=== PATIENT | female | born 1945 | race Caucasian/White ===

== ENCOUNTER 2024-01-31 19:06 | Inpatient (IN) | payer OTHER, SELFPAY ==
[2024-01-31 15:25] VITALS: BP 129/61
[2024-01-31 15:48] VITALS: BP 129/104; BP 167/68; PULSE 78; PULSE 90
[2024-01-31 16:31] LABS: % Basophils 0.4 % (0-2); % Eosinophils 1.4 % (0-6); % Immature Granulocytes 0.7 % (0-0.5); % Lymphocytes 15.4 % (20.5-51.1); % Monocytes 6.1 % (1.7-9.3); Absolute Basophils 0.1 10^3/uL (0-0.2); Absolute Eosinophils 0.2 10^3/uL (0-0.7); Absolute Immature Granulocytes 0.1 10^3/uL (0-0.05); Absolute Lymphocytes 2.1 10^3/uL (1.2-3.4); Absolute Monocytes 0.8 10^3/uL (0.1-0.6); Absolute Neutrophils 10.3 10^3/uL (1.4-6.5); Hematocrit 36.8 % (37.0-47.0); Hemoglobin 12.6 g/dL (12.0-16.0); Mean Corp Hgb Conc. 34.2 g/dL (33.0-37.0); Mean Corpuscular Volume 84.6 fL (81.0-99.0); Mean Platelet Volume 9.4 fL (7.4-10.4); Nucleated Red Blood Cells % 0 %; Platelet Count 251 10^3/uL (130-400); Red Blood Cell Count 4.35 10^6/uL (4.20-5.40); Red Cell Dist. Width 13.1 % (11.5-14.5); Urine Albumin Trace (Neg - Trace); Urine Bilirubin 1+ (Negative); Urine Character Clear (Clear); Urine Color Yellow; Urine Glucose Negative (Negative); Urine Ketone Negative (Negative); Urine Leukocyte 2+ (Negative); Urine Nitrite Negative (Negative); Urine Occult Blood Negative (Negative); Urine Specific Gravity 1.025 (<1.030); Urine Urobilinogen Negative (Neg - 1+); White Blood Cell Count 13.5 10^3/uL (4.8-10.8)
[2024-01-31 16:37] LABS: Urine Red Blood Cell 0-2 /HPF (0-2); Urine Squamous Cell >30 /LPF (Few)
[2024-01-31 16:38] LABS: Urine Bacteria Many (Negative)
[2024-01-31 17:09] LABS: ALT (SGPT) 31 U/L (0-35); AST (SGOT) 28 U/L (14-36); Albumin 4.2 g/dl (3.5-5.0); Alkaline Phosphatase 141 U/L (38-126); Blood Urea Nitrogen 92 mg/dl (7-17); Calcium 8.6 mg/dl (8.4-10.2); Carbon Dioxide 18 mmol/L (22-30); Chloride 98 mmol/L (98-107); Glucose 182 mg/dl (70-99); Potassium 4.4 mmol/L (3.5-5.1); Sodium 133 mmol/L (135-145); Total Bilirubin 1.2 mg/dl (0.2-1.3); Total CK 238 U/L (30-135); Total Protein 7.5 g/dl (6.3-8.2); eGFR 16.55
--- NOTE | 2024-01-31 17:27 | ED.GENMED ---
History of Present Illness
General
Chief Complaint: Fall
Source: patient
Exam Limitations: none
Time Seen by Provider: 01/31/24 15:28
Nursing documentation reviewed up to this point in time: agreed with
History of Present Illness
History of Present Illness:
86-year-old female with history of chronic low back pain, back stimulator under the care of of pain management, orthostatic hypotension, here after episode of vomiting and diarrhea 3 nights ago, general weakness today, fall in her bathroom today
with acute on chronic low back pain.
Patient states the last time she felt well was 4 days ago when she drove to a [facility] for a visit.
On her way home she stopped at a market and got some chicken salad and potato salad which she ate that evening and about 2 hours later vomited 'a lot' once then she had diarrhea x 3. She slept on the couch and the next day (2 days ago) she felt
weak and lightheaded. Yesterday she rested and took a bath and laid on the couch but could not sleep so she walked to her bedroom, slept overnight and at 10 AM today she states she got up to go to the bathroom, sat on the toilet and then fell from
the toilet to the floor where she laid for about an hour, she finally sat up and scooted on her butt backwards the bedroom and push the help button. EMS arrived and brought her here.
She states now her lower back is more sore than usual.
She denies F/C. Denies nausea at this time. She denies chest pain or trouble breathing. Denies abdominal pain.
She arrives in a weakened state and cannot stand without significant assistance at bedside.
5:45 p.m.
Family just arrived. Pt has hx NIDDM, HTN, Hypothyroid. Pt states she has not been taking her medications as she is trying to control with diet
Past History
Past History
ED Past Medical History: HTN, NIDDM, Hypothyroidism and Other (Chronic back pain under the care of pain management at [facility])
ED Past Surgical History: Orthopedic
Social History
Tobacco: Non-smoker
Living: alone ([place] [facility])
Review of Systems
Review of Systems
Allergies reviewed?: Yes
All Other Systems: ROS reviewed and negative except as documented in HPI and ROS
Constitutional: Reports fatigue; Denies fever
Respiratory: Denies trouble breathing
Cardiac: Denies chest pain, palpitations or syncope
ABD/GI: Denies abdominal pain, nausea, vomiting or diarrhea
: Denies dysuria, frequency or difficulty voiding
Musculoskeletal: Reports back pain (chronic back pain followed by pain management)
Skin: Reports no symptoms
Neurological: Reports weakness (generalized); Denies dizzy or headache
Phy Exam
Physical Exam
Physical Exam:
GENERAL: No acute distress. A&Ox3.
CONSTITUTIONAL: Afebrile.
EYES: PERRL, conjunctivae normal
Neck: Supple
ENMT: Mouth very dry, Pharynx nl
RESPIRATORY: Regular respirations, nonlabored, lungs clear.
CARDIOVASCULAR: Regular rate and rhythm, no murmurs, no rubs.
GI: Soft, nontender, normal BS
MUSCULOSKELETAL: Too weak to stand. Well perfused. No edema
SKIN: Warm, dry, pink
PSYCH: Normal mood and affect. Well kept, interactive and appropriate
NEUROLOGIC: Awake, alert and oriented. No focal neurological deficits
Course
Orders/Labs/Results
Orders:
Orders
01/31/24 Breakfast
Cholesterol Lowering
Cholesterol Lowering: Sodium, 2 Gram
01/31/24 15:29
Orthostatic VS- Treatment ONCE
01/31/24 16:05
Lumbar Spine, 2 or 3 View [CR Lumbar Spine 2 Or 3 Views] Urgent
Comment:
Reason For Exam: pain after fall
01/31/24 16:19
Complete Blood Count/With Diff Urgent
Urinalysis Reflex To Culture Urgent
Date Specimen was Collected: 01/31/24
Time Specimen was Collected: 16:19
Urine Microscopic Reflex Cult Urgent
Urine Culture Urgent
ROBINSON Source: U
Specimen Description:
Date Specimen was Collected: 01/31/24
Time Specimen was Collected: 16:19
01/31/24 16:45
CPK Isoenzyme Urgent
Comprehensive Metabolic Panel Urgent
01/31/24 17:43
0.9% Sodium Chloride 1000 ml [Nss] 1,000 ml IV BOLUS
01/31/24 18:27
Abdomen/Pelvis wo Contrast CT [CT Abd/pelvis Wo Iv Cont] Urgent
Comment: OK FOR PO CONTRAST
Reason For Exam: abdominal pain
01/31/24 18:28
Admit/Transfer Patient As Directed
Co-Sign Provider:
Level of Care: Inpatient admission
Assign to:: Telemetry
Physician / Group: aiden cyr
Diagnosis: Dehydration, acute kidney injury, fall
Reason for Telemetry: Arrhythmia
Date to Stop Telemetry: 02/03/24
Time to Stop Telemetry: 11:00
Reason for Hospitalization: Dehydration, acute kidney injury, fall
Expected length of stay greater than two midnights?: Yes
ELOS- Estimated Length of Stay in days: 3
I certify the patient meets the requirements for IP care: Yes
01/31/24 18:29
PRN Pain Medication Management As Directed
May give lesser potent ordered pain med per pt: Yes
preference::
Protocol:: Medication orders for pain may be administered in a
manner that supports deferring to patient preference
when the pt is:
- Requesting an ordered lesser potent pain medication.
Least to most potent pain medications are defined
as: acetaminophen < NSAID < tramadol < opioids
(morphine, oxycodone, hydromorphone).
- Requesting a lesser dose of the same medication IF
ORDERED.
- Requesting a less intrusive route of administration
if both routes are prescribed by the provider (PO <
IV).
01/31/24 18:30
Code Status As Directed
Resuscitation Status: Do not resuscitate
Reached after discussion with pt or family/Healthcare POA: Yes
0.9% Sodium Chloride 1000 ml [Nss] 1,000 ml IV 100 mls/hr
DNR Bracelet Application ONCE
01/31/24 18:32
EKG [Electrocardiogram (*1)] Urgent
Reason for Study: QTc Monitoring
01/31/24 18:34
Orthostatic Vital Signs As Directed
Orthostatic VS Frequency: BID
Comment: include now
Ot Eval And Treat Routine
Pt Eval And Treat Routine
Activity Level: As Tolerated
01/31/24 18:36
Bladder Scan As Directed
Follow Bladder Retention/Intermittent Cath Algorithm?: Yes
PRN if no void in __ hours: 6
Frequency: Per Retention Algorithm
If Bladder Scan Result >: 400
then:: Straight cath
Straight Cath As Directed
Frequency: Per Retention Algorithm
Additional Instructions: straight cath as needed per acute urinary retention algorithm for 24 hrs
Additional Instructions: for bladder scan greater than 400 mL
01/31/24 18:40
Dextrose 50%-Water [Dextrose 50% Syringe] 12.5 grams IV [id number] PRN
Glucagon [GlucaGen] 1 mg IM PRN PRN
Bedside Glucose Monitoring As Directed
Frequency: AC&HS
Additional Instructions:: Change to q6h if pt on TPN, tube feeding or not eating
01/31/24 20:59
Acetaminophen [Tylenol] 650 mg PO Q4HPRN PRN
HYDROmorphone [Dilaudid] 0.5 mg IV Q4HPRN PRN
01/31/24 20:59
Activity As Directed
Activity Level: As Tolerated
Intake/ Output As Directed
Frequency: Per unit guidelines
Pneumatic Compression Sleeves As Directed
Type: Knee high
Vital Signs As Directed
Frequency: Per unit guidelines
Weight As Directed
Frequency: Daily
Pulse Ox/spot Check [RESP] Routine
Quantity: 1
DX Deep Vein Thrombosis Video Routine
01/31/24 22:00
Amitriptyline [Elavil] 75 mg PO HS
Pyridoxine [Vitamin B-6] 100 mg PO HS
methocarbamol 500 mg PO HS
02/01/24 06:00
Complete Blood Count/With Diff IN AM
Comprehensive Metabolic Panel IN AM
Glycohemoglobin (HgbA1c) IN AM
TSH Reflex To Free T4 IN AM
Total CK [Creatine Phosphokinase] IN AM
Levothyroxine [Synthroid] 75 mcg PO DAILY @ 0600
02/01/24 07:30
Insulin Aspart Corrective Low [Novolog Flexpen-Low Resistance] See Protocol SC AC
02/01/24 08:00
Amlodipine [Norvasc] 2.5 mg PO DAILY
Solifenacin Succinate [Vesicare] 10 mg PO DAILY
02/02/24 06:00
Complete Blood Count/With Diff IN AM
Comprehensive Metabolic Panel IN AM
02/03/24 06:00
Complete Blood Count/With Diff IN AM
Comprehensive Metabolic Panel IN AM
02/03/24 11:00
DC Protocol for Telemetry ONCE
02/04/24 06:00
Complete Blood Count/With Diff IN AM
Comprehensive Metabolic Panel IN AM
02/05/24 06:00
Complete Blood Count/With Diff IN AM
Comprehensive Metabolic Panel IN AM
02/06/24 06:00
Complete Blood Count/With Diff IN AM
Comprehensive Metabolic Panel IN AM
Abnormal Lab Results
01/31/24 01/31/24
16:19 16:45
WBC 13.5 H 10^3/uL
(4.8-10.8)
Hct 36.8 L %
(37.0-47.0)
Abs Immat Gran (auto) 0.1 H 10^3/uL
(0-0.05)
Absolute Neuts (auto) 10.3 H 10^3/uL
(1.4-6.5)
Absolute Monos (auto) 0.8 H 10^3/uL
(0.1-0.6)
Immature Gran % 0.7 H %
(0-0.5)
Neutrophils % 76.0 H %
(42.2-75.2)
Lymphocytes % 15.4 L %
(20.5-51.1)
Sodium 133 L mmol/L
(135-145)
Carbon Dioxide 18 L mmol/L
(22-30)
BUN 92 H mg/dl
(7-17)
Creatinine 2.8 H mg/dL
(0.6-1.0)
Glucose 182 H mg/dl
(70-99)
Alkaline Phosphatase 141 H U/L
(38-126)
Total Creatine Kinase 238 H U/L
(30-135)
Urine Bilirubin 1+ A
(Negative)
Leukocyte Esterase Rfl 2+ A
(Negative)
Urine WBC (Reflex) 11-15 A /HPF
(0-5)
Urine Bacteria (Reflex) Many A
(Negative)
01/31/24 16:19
01/31/24 16:45
Vital Signs
Initial and Last Documented VS:
Initial Vital Signs
Temp Pulse Resp BP Pulse Ox
98.1 F 80 22 129/61 93
01/31/24 15:25 01/31/24 15:25 01/31/24 15:25 01/31/24 15:25 01/31/24 15:25
Last Documented Vital Signs
Temp Pulse Resp BP Pulse Ox
98.0 F 87 18 158/62 100
01/31/24 20:40 01/31/24 20:40 01/31/24 20:40 01/31/24 20:40 01/31/24 20:40
MDM/Problems Addressed
MDM/Problems Addressed:
86-year-old female with history of chronic low back pain, back stimulator under the care of of pain management, orthostatic hypotension, here after episode of vomiting and diarrhea 3 nights ago, general weakness today, fall in her bathroom today
with acute on chronic low back pain.
Patient states the last time she felt well was 4 days ago when she drove to a [facility] for a visit.
On her way home she stopped at a market and got some chicken salad and potato salad which she ate that evening and about 2 hours later vomited 'a lot' once then she had diarrhea x 3. She slept on the couch and the next day (2 days ago) she felt
weak and lightheaded. Yesterday she rested and took a bath and laid on the couch but could not sleep so she walked to her bedroom, slept overnight and at 10 AM today she states she got up to go to the bathroom, sat on the toilet and then fell from
the toilet to the floor where she laid for about an hour, she finally sat up and scooted on her butt backwards the bedroom and push the help button. EMS arrived and brought her here.
She states now her lower back is more sore than usual.
She denies F/C. Denies nausea at this time. She denies chest pain or trouble breathing. Denies abdominal pain.
She arrives in a weakened state and cannot stand without significant assistance at bedside.
5:30 p.m.
CBC WBC 13.5
CMP:92/2.8 (nothing to compare). No documented significant past medical history. Glucose 182
CPK: 238
Gap 17
IL NSS ordered
U/A: Negative nitrites +1 bilirubin 2+ leukocytes, WBC sees 11-15, greater than 30 squames, many bacteria, culture
6:00 p.m.
LS spine radiology report read: IMPRESSION:
Moderate multilevel degenerative changes of the lumbar spine without evidence for acute fracture.
Plan: Admit: Acute Dehydration, NIDDM, acute renal insufficiency, generalized weakness
Hospitalist notified of admission
*Critical Care Note
Total Time (30-74mins, 75-104mins- exclusive of procedures): Not Applicable
ED Attending Note
-
Portions of this chart may have been created with voice recognition software.� Occasional wrong word or��sound alike� substitutions may have occurred due to the inherent limitations of voice recognition software.
Discharge Plan
Departure
Patient Disposition: Admit
Date of Disposition: 01/31/24
Time of Disposition: 17:59
Admit to: Med/Surg
Presentation/result/management discussed w/ accepting MD/DO: Hospitalist
Condition: Fair
Discharge Problem:
Acute dehydration, Generalized weakness, Acute kidney insufficiency, Fall
Interventions
Interventions:
*Risk Screen - Suicide Last Done: 01/31/24 15:31
*General Assessment Last Done: 01/31/24 15:31
*Neglect/Abuse Screening Last Done: 01/31/24 15:31
ED- Fall Risk Assessment Last Done: 01/31/24 19:52
*ED COVID-19 Vaccine History Last Done: 01/31/24 15:31
*Nursing Disposition Last Done: 01/31/24 20:44
ED-Musculoskeletal Assessment Last Done: 01/31/24 15:48
ED- Neurological Assessment Last Done: 01/31/24 15:48
ED-Skin Assessment Last Done: 01/31/24 15:48
Discharge Date and Time
Discharge Date/Time: 01/31/24 20:45
[2024-01-31] MEDS: NSS 1000 IV ×2 (17:44→19:46)
[2024-01-31 18:03] LABS: CKMB 2.4 ng/ml (0.0-2.4)
--- NOTE | 2024-01-31 18:32 | HPS.HSE ---
Family Physician
-
Family Physician: Brianna Kong MD
Chief Complaint
-
Fall
History of Present Illness
78-year-old female with past medical history of uye-orvjqsg-orvcznwbj diabetes mellitus, hypertension, hypothyroidism, chronic back pain status post spinal stimulator, IBS came to the hospital after a fall. Per patient and family at bedside patient
started having vomiting and diarrhea 3 days ago after eating outside food. Her vomiting and diarrhea now slowly better however later she had a fall at home. She denies any chest pain, shortness of breath. Did have some lightheadedness and
weakness.. Denies any sick contacts. Denies any fever/chills.
Medical History
Past Medical History
Past Medical History: Reports Other
Additional Past Medical History:
HTN, NIDDM, Hypothyroidism, chronic back pain
Past Surgical History: Reports Orthopedic and Other (Spinal stimulator)
Social History
Tobacco: Non-smoker
Family History
Family History: Not pertinent
Allergies / Home Medications
Allergies reflects when Allergies were last updated in [facility].
Home Medications with original date entered in [facility]
Allergy/Medication List:
Allergies
Allergy/AdvReac Type Severity Reaction Status Date / Time
No Allergy Information Allergy Unverified 01/31/24 15:29
Available
Home Medications
amitriptyline 75 mg tablet 75 mg PO HS 01/31/24
amlodipine 2.5 mg tablet 2.5 mg PO DAILY 01/31/24
levothyroxine 75 mcg tablet 75 mcg PO DAILY 01/31/24
lisinopril 5 mg tablet 2.5 mg PO HS 01/31/24
magnesium oxide 400 mg PO HS 01/31/24
methocarbamol 500 mg tablet 500 mg PO HS 01/31/24
pyridoxine (vitamin B6) 100 mg tablet (Vitamin B-6) 100 mg PO HS 01/31/24
solifenacin 10 mg tablet 10 mg PO DAILY 01/31/24
Review of Systems
-
History Source: Patient and Family
A 12 point ROS was completed and negative except as noted: Yes
Abdomen/GI: Reports Abdominal Pain
Physical Exam
Vital Signs
Vital Signs
Temp Pulse Resp BP Pulse Ox
98.1 F 80 20 129/61 93
01/31/24 15:25 01/31/24 15:25 01/31/24 16:08 01/31/24 15:25 01/31/24 15:25
Physical Exam
General: Well Nourished and No Apparent Distress
HEENT: Anicteric and Moist mucous membranes
Respiratory: Clear and Non Labored Respirations; No Wheezes
Cardiac: S1/S2 and Regular Rhythm
Breast: Deferred by me
GI: Soft, Non Tender and Non Distended
Genito-urinary: Deferred by me
Musculoskeletal: No Edema
Neuro: Awake, Alert, Oriented and AO x 3
Psych: Calm and Intact Judgment/Insight
Laboratory Results
-
01/31/24 16:19
01/31/24 16:45
Laboratory Results
Total Bilirubin 1.2 mg/dl (0.2-1.3) 01/31/24 16:45
AST 28 U/L (14-36) 01/31/24 16:45
ALT 31 U/L (0-35) 01/31/24 16:45
Alkaline Phosphatase 141 U/L (38-126) H 01/31/24 16:45
Data Reviewed
-
Lab Data: Labs Reviewed by me, Discussed with Patient and Discussed with Family
Impression/Plan
-
Weakness and lightheadedness likely secondary to acute dehydration from ongoing nausea vomiting and diarrhea
mechanical fall 2/2 weakness; denies loss of consciousness
No nausea vomiting and diarrhea appears to be improving
Mild abdominal pain on exam, check CT abdomen/pelvis with p.o. contrast
IVF
pt/ot
Mild rhabdomyolysis secondary to fall
Monitor CK
Fluids
Mild hyponatremia
monitor
acute renal insufficiency
Unknown baseline creatinine however patient reports no history of chronic kidney disease
Bladder scan
Monitor creatinine with fluids
Ua collected in ED has lots of sq cells; repeat Ua
Chronic back pain status post spinal stimulator
Follows up with pain management at [facility]
Continue to monitor
On amitriptyline
History of ljn-mblxwei-ydfnaljzf responses
Currently being controlled with diet and exercise, per family last A1c 6
check A1c; ISS,accuchecks
History of hypertension
Continue amlodipine, hold lisinopril
DVT prophylaxis
SCDs
CODE STATUS
DNR, confirmed with patient and family at bedside
I spent a total of 77 minutes with the patient or on the floor. More than 50% of this time involved counseling and coordination of care.
[2024-01-31 20:36] VITALS: BP 152/64
[2024-01-31 20:40] VITALS: BP 158/62; BMI 30.9
[2024-01-31 21:26] LABS: Glucose - Point of Care 130 mg/dl (70-99)
[2024-01-31] MEDS: VITAMIN B-6 100 MG PO (22:00)
[2024-01-31] MEDS: ELAVIL 75 MG PO (22:00)
[2024-01-31 23:40] VITALS: BP 117/47
[2024-02-01] VITALS (9 sets, daily range): BP systolic 92–168; BP diastolic 43–86; PULSE 88–102; BMI 30.9
[2024-02-01 05:56] LABS: % Basophils 0.5 % (0-2); % Immature Granulocytes 0.5 % (0-0.5); % Lymphocytes 22.1 % (20.5-51.1); % Monocytes 7.4 % (1.7-9.3); % Neutrophils 66.5 % (42.2-75.2); Absolute Eosinophils 0.2 10^3/uL (0-0.7); Absolute Lymphocytes 1.7 10^3/uL (1.2-3.4); Absolute Monocytes 0.6 10^3/uL (0.1-0.6); Hematocrit 35.2 % (37.0-47.0); Hemoglobin 11.8 g/dL (12.0-16.0); Mean Corp Hgb Conc. 33.5 g/dL (33.0-37.0); Mean Corpuscular Hgb 29.6 pg (27.0-31.0); Mean Corpuscular Volume 88.4 fL (81.0-99.0); Mean Platelet Volume 9.4 fL (7.4-10.4); Nucleated Red Blood Cells % 0 %; Platelet Count 212 10^3/uL (130-400); Red Blood Cell Count 3.98 10^6/uL (4.20-5.40); White Blood Cell Count 7.6 10^3/uL (4.8-10.8)
[2024-02-01] MEDS: SYNTHROID 75 MCG PO (06:04)
[2024-02-01 06:34] LABS: ALT (SGPT) 26 U/L (0-35); AST (SGOT) 22 U/L (14-36); Albumin 3.4 g/dl (3.5-5.0); Alkaline Phosphatase 120 U/L (38-126); Blood Urea Nitrogen 65 mg/dl (7-17); Calcium 8.1 mg/dl (8.4-10.2); Carbon Dioxide 20 mmol/L (22-30); Chloride 107 mmol/L (98-107); Creatine Phosphokinase 150 U/L (30-135); Estimated Creatinine Clearance 24 ml/min; Glucose 164 mg/dl (70-99); Potassium 4.2 mmol/L (3.5-5.1); Sodium 140 mmol/L (135-145); Total Bilirubin 0.8 mg/dl (0.2-1.3); Total Protein 6.4 g/dl (6.3-8.2); eGFR 30.13
--- NOTE | 2024-02-01 06:38 | PTCARENOTE ---
Patient arrived on unit via stretcher from ED @2044, pulled over to bed with assist x3. Patient AAOx3, skin assessment completed, oriented to unit, call parra within reach.
[2024-02-01 06:52] LABS: TSH Reflex To Free T4 2.11 uIU/ml (0.47-4.68)
[2024-02-01 07:21] LABS: Glucose - Point of Care 155 mg/dl (70-99)
[2024-02-01] MEDS: NSS 1000 IV ×2 (07:25→21:20)
[2024-02-01] MEDS: DILAUDID 0.5 MG IV ×2 (07:26→21:23)
[2024-02-01] MEDS: VESICARE 10 MG PO (07:26)
[2024-02-01] MEDS: NORVASC 2.5 MG PO (07:26)
[2024-02-01] MEDS: OMNIPAQUE 50 ML PO (08:14)
[2024-02-01] MEDS: NOVOLOG FLEXPEN-LOW RESISTANCE 1 UNITS SC (08:15)
[2024-02-01 08:55] LABS: Glycohemoglobin (HgbA1c) 6.8 % (4.0-5.6)
[2024-02-01] MEDS: TYLENOL 650 MG PO ×2 (10:39→16:51)
[2024-02-01 11:50] LABS: Glucose - Point of Care 237 mg/dl (70-99)
--- NOTE | 2024-02-01 11:56 | W.PN.HOSP.TC ---
Today's Communication/Plan
-
Monitor vital signs
see plan
N.p.o. for now, abdominal x-ray in a.m.
Continue with fluids
Check lactate
Assessment / Plan
Assessment / Plan
General: Well Nourished and No Apparent Distress
HEENT: Anicteric and Moist mucous membranes
Respiratory: Clear and Non Labored Respirations; No Wheezes
Cardiac: S1/S2 and Regular Rhythm
GI: Soft, Non Tender and Non Distended
Musculoskeletal: No Edema
Neuro: Awake, Alert, Oriented and AO x 3
Psych: Calm and Intact Judgment/Insight
Weakness and lightheadedness likely secondary to acute dehydration from ongoing nausea vomiting and diarrhea
mechanical fall 2/2 weakness; denies loss of consciousness
No nausea vomiting and diarrhea appears to be improving
IVF
pt/ot
mild partial SBO on CT
N.p.o. for now, okay for sips of clears, p.o. meds. Abdominal x-ray tomorrow
Suspected ischemic colitis
Check lactate, appears pain is improving
Continue to monitor; diarrhea resolved
Mild rhabdomyolysis secondary to fall
Monitor CK
Fluids
Mild hyponatremia
monitor
acute renal insufficiency
Unknown baseline creatinine however patient reports no history of chronic kidney disease
Bladder scan
Monitor creatinine with fluids
Ua collected in ED has lots of sq cells; repeat Ua
Chronic back pain status post spinal stimulator
Follows up with pain management at [facility]
Continue to monitor
On amitriptyline
History of kgc-kjmzqgg-mxosyxpux responses
Currently being controlled with diet and exercise, per family last A1c 6
A1c 6.8; ISS,accuchecks
History of hypertension
Continue amlodipine, hold lisinopril
DVT prophylaxis
SCDs
CODE STATUS
DNR, confirmed with patient and family at bedside
I spent a total of 52 minutes with the patient or on the floor. More than 50% of this time involved counseling and coordination of care.
Anticipated Discharge: > 48 hours
Subjective/Interval History
-
Date of Service: February 01, 2024
denies nausea
Objective Data
-
Labs:
Laboratory Results
02/01/24
05:28
WBC 7.6
Hgb 11.8 L
Hct 35.2 L
Plt Count 212
Sodium 140
Potassium 4.2
Chloride 107
Carbon Dioxide 20 L
BUN 65 H
Creatinine 1.7 H
Glucose 164 H
Calcium 8.1 L
Total Bilirubin 0.8
AST 22
ALT 26
Alkaline Phosphatase 120
Vital Signs:
Vital Signs
Temp Pulse Resp BP Pulse Ox
98.3 F 95 16 156/86 97
02/01/24 11:10 02/01/24 11:10 02/01/24 11:10 02/01/24 11:10 02/01/24 11:10
I&O
01/31/24 02/01/24 02/02/24
06:59 06:59 06:59
Intake Total 1348 / 1348
Output Total 400 / 400
Balance 948 / 948
[2024-02-01] MEDS: NOVOLOG FLEXPEN-LOW RESISTANCE 2 UNITS SC (12:51)
--- NOTE | 2024-02-01 16:00 | CM ---
Alert awake oriented patient who lives in [place] by herself. She is independent in activates of daily living.She uses a walker and cane prn.
Had [facility] in past . SNF hx
Pharmacy [facility]
PCP Dr Brianna Kong
PLAN Home VS SNF Will need PT OT for dc planning.
[2024-02-01 16:51] LABS: Glucose - Point of Care 115 mg/dl (70-99)
[2024-02-01] MEDS: NOVOLOG FLEXPEN-LOW RESISTANCE SC (17:28)
[2024-02-01 21:12] LABS: Glucose - Point of Care 127 mg/dl (70-99)
[2024-02-01] MEDS: FLEXERIL 5 MG PO (21:15)
[2024-02-01] MEDS: VITAMIN B-6 100 MG PO (21:23)
[2024-02-01] MEDS: ELAVIL 75 MG PO (21:23)
[2024-02-02] VITALS (7 sets, daily range): BP systolic 126–186; BP diastolic 51–104; PULSE 81; O2SAT 99; BMI 31.4
[2024-02-02 03:47] LABS: Urine Albumin Negative (Neg - Trace); Urine Bilirubin Negative (Negative); Urine Character Clear (Clear); Urine Color Yellow; Urine Glucose Negative (Negative); Urine Ketone Negative (Negative); Urine Leukocyte Trace (Negative); Urine Nitrite Negative (Negative); Urine Occult Blood Negative (Negative); Urine Specific Gravity 1.015 (<1.030); Urine Urobilinogen Negative (Neg - 1+)
[2024-02-02 05:30] LABS: Urine Bacteria Many (Negative); Urine Mucus Moderate
[2024-02-02 05:38] LABS: Urine Squamous Cell >30 /LPF (Few)
[2024-02-02 05:41] LABS: Urine Red Blood Cell 0-2 /HPF (0-2)
[2024-02-02] MEDS: SYNTHROID 75 MCG PO (06:06)
[2024-02-02 07:28] LABS: % Basophils 0.8 % (0-2); % Eosinophils 5.3 % (0-6); % Immature Granulocytes 0.8 % (0-0.5); % Lymphocytes 31.6 % (20.5-51.1); % Monocytes 8.5 % (1.7-9.3); Absolute Basophils 0.1 10^3/uL (0-0.2); Absolute Eosinophils 0.4 10^3/uL (0-0.7); Absolute Immature Granulocytes 0.1 10^3/uL (0-0.05); Absolute Lymphocytes 2.3 10^3/uL (1.2-3.4); Absolute Monocytes 0.6 10^3/uL (0.1-0.6); Absolute Neutrophils 3.8 10^3/uL (1.4-6.5); Hematocrit 32.3 % (37.0-47.0); Hemoglobin 10.9 g/dL (12.0-16.0); Mean Corp Hgb Conc. 33.7 g/dL (33.0-37.0); Mean Corpuscular Hgb 29.1 pg (27.0-31.0); Mean Corpuscular Volume 86.1 fL (81.0-99.0); Mean Platelet Volume 8.9 fL (7.4-10.4); Nucleated Red Blood Cells % 0 %; Platelet Count 213 10^3/uL (130-400); Red Blood Cell Count 3.75 10^6/uL (4.20-5.40); Red Cell Dist. Width 13.1 % (11.5-14.5); White Blood Cell Count 7.2 10^3/uL (4.8-10.8)
[2024-02-02 07:36] LABS: Glucose - Point of Care 109 mg/dl (70-99)
[2024-02-02 08:11] LABS: ALT (SGPT) 24 U/L (0-35); AST (SGOT) 23 U/L (14-36); Alkaline Phosphatase 113 U/L (38-126); Blood Urea Nitrogen 32 mg/dl (7-17); Calcium 8.1 mg/dl (8.4-10.2); Carbon Dioxide 18 mmol/L (22-30); Chloride 110 mmol/L (98-107); Estimated Creatinine Clearance 35 ml/min; Glucose 105 mg/dl (70-99); Potassium 4.3 mmol/L (3.5-5.1); Sodium 140 mmol/L (135-145); Total Bilirubin 0.6 mg/dl (0.2-1.3); Total Protein 5.9 g/dl (6.3-8.2); eGFR 45.76
[2024-02-02] MEDS: NSS 1000 IV (09:12)
[2024-02-02] MEDS: NOVOLOG FLEXPEN-LOW RESISTANCE SC ×2 (09:13→16:26)
[2024-02-02] MEDS: VESICARE 5 MG PO (09:15)
[2024-02-02] MEDS: NORVASC 2.5 MG PO (09:15)
[2024-02-02] MEDS: NSS IV (09:17)
[2024-02-02] MEDS: DILAUDID 0.5 MG IV ×2 (09:35→21:43)
[2024-02-02 12:11] LABS: Glucose - Point of Care 150 mg/dl (70-99)
--- NOTE | 2024-02-02 12:18 | W.PN.HOSP.TC ---
Today's Communication/Plan
-
Monitor vital signs see plan
PT/OT recommending SNF
Continue to monitor creatinine, now improving
Start diet
Assessment / Plan
Assessment / Plan
General: Well Nourished and No Apparent Distress
HEENT: Anicteric and Moist mucous membranes
Respiratory: Clear and Non Labored Respirations; No Wheezes
Cardiac: S1/S2 and Regular Rhythm
GI: Soft, Non Tender and Non Distended
Musculoskeletal: No Edema
Neuro: Awake, Alert, Oriented and AO x 3
Psych: Calm and Intact Judgment/Insight
Weakness and lightheadedness likely secondary to acute dehydration from ongoing nausea vomiting and diarrhea
mechanical fall 2/2 weakness; denies loss of consciousness
IVF
pt/ot
mild partial SBO on CT
Abdominal x-ray 02/01 with contrast in colon, start diet
Suspected ischemic colitis
lactate normal, appears pain is improving
Continue to monitor; diarrhea resolved
cdiff neg,no WBC in stool
Mild rhabdomyolysis secondary to fall
Monitor CK
Fluids
Mild hyponatremia
monitor
acute kidney injury
Creatinine on admission 2.8, creatinine now 1.2
Unknown baseline creatinine however patient reports no history of chronic kidney disease
Bladder scan
Monitor creatinine with fluids
Ua collected in ED has lots of sq cells; denies any UTI symptoms
Chronic back pain status post spinal stimulator
Follows up with pain management at [facility]
Continue to monitor
On amitriptyline
History of vye-upbjyrg-arrjioigo responses
Currently being controlled with diet and exercise, per family last A1c 6
A1c 6.8; ISS,accuchecks
History of hypertension
Continue amlodipine, hold lisinopril
DVT prophylaxis
SCDs
CODE STATUS
DNR, confirmed with patient and family at bedside
I spent a total of 51 minutes with the patient or on the floor. More than 50% of this time involved counseling and coordination of care.
Anticipated Discharge: Within 24 hours
Subjective/Interval History
-
Date of Service: February 02, 2024
Denies pain
Objective Data
-
Labs:
Laboratory Results
02/02/24
07:01
WBC 7.2
Hgb 10.9 L
Hct 32.3 L
Plt Count 213
Sodium 140
Potassium 4.3
Chloride 110 H
Carbon Dioxide 18 L
BUN 32 H
Creatinine 1.2 H
Glucose 105 H
Calcium 8.1 L
Total Bilirubin 0.6
AST 23
ALT 24
Alkaline Phosphatase 113
Vital Signs:
Vital Signs
Temp Pulse Resp BP Pulse Ox
98.6 F 88 17 145/55 92
02/02/24 11:33 02/02/24 11:33 02/02/24 11:33 02/02/24 11:33 02/02/24 11:33
I&O
02/01/24 02/02/24 02/03/24
06:59 06:59 06:59
Intake Total 2047
Output Total 400 / 400
Balance 1648 / 1648
[2024-02-02] MEDS: NOVOLOG FLEXPEN-LOW RESISTANCE 1 UNITS SC (13:19)
--- NOTE | 2024-02-02 15:17 | PN.CDI ---
CDI
- -
CDI:
Physician Documentation Request
Admit Date: 01/31/24 19:06
Dear Doctor Shay,
Clinical Indicators:
Patient admitted with suspected ischemic colitis and MECCA.
01/30 ED Report, '...at 10 AM today she states she got up to go to the bathroom, sat on the toilet and then fell from the toilet to the floor where she laid for about an hour, she finally sat up and scooted on her butt backwards the bedroom...'
02/01 PN, 'Mild rhabdomyolysis secondary to fall'
Please clarify the type of rhabdomyolysis:
Non traumatic rhabdomyolysis
Traumatic rhabdomyolysis
Other,please specify
Use of terms such as suspected, likely, concern for, or probable (associated with a specific diagnosis that is being evaluated, monitored, or treated as if it exists) are acceptable and can be coded in the inpatient setting, when documented at the
time of discharge.
Thank you,
Maria Guadalupe Acosta RN BSN
CDI Specialist
available via tiger text
Please use your independent medical judgment in providing your response.
--- NOTE | 2024-02-02 15:23 | PN.CDI ---
CDI
- -
CDI:
Physician Documentation Request
Admit Date: 01/31/24 19:06
Dear Doctor Shay,
Clinical Indicators:
Patient presented with vomiting, diarrhea x 3 days.
H & P, 'Mild abdominal pain on exam'
01/31 PN, 'mild partial SBO on CT...Suspected ischemic colitis'
Please clarify which of the following accurately represents the acuity of the ischemic colitis. Possible options might include:
Acute
Subacute
Chronic
Other
Use of terms such as suspected, likely, concern for, or probable (associated with a specific diagnosis that is being evaluated, monitored, or treated as if it exists) are acceptable and can be coded in the inpatient setting, when documented at the
time of discharge.
Thank you,
Maria Guadalupe Acosta RN BSN
CDI Specialist
available via tiger text
Please use your independent medical judgment in providing your response.
[2024-02-02 16:24] LABS: Glucose - Point of Care 126 mg/dl (70-99)
[2024-02-02] MEDS: TYLENOL 650 MG PO (16:27)
--- NOTE | 2024-02-02 16:45 | CM ---
Reviewed chart, met with patient to discuss SNF placement. Patient stated that she would go to [facility]. Will send referrals in the am.
Plan: Case management will continue to follow and assist with discharge planning. SNF.
--- NOTE | 2024-02-02 18:10 | PTCARENOTE ---
pt's roommates visitor yelled out of pt room that something was wrong with pt. this nurse and tech Osiris walked into room and found pt laying flat on back towards the bottom of the bed, head of bed was elevated but pt was not laying against elevated
surface, food tray was on side table and dinner plate was on top of pt abdomen, pt was coughing up food chunks. This nurse and tech sat pt up, pt airway was not obstructed. pt continued to cough and cough up small bites of food. pt stated 'I was
eating and then I just couldn't swallow.' Pt was assisted OOB and sat in the chair for 15 minutes. pulse ox 95% on RA, lingering cough. bed linens changed. this nurse notified Dr. Day via tt, CXR ordered. Dr. Day requested that covering FURNITURE UPHOLSTERER be
notified when CXR is resulted. This nurse will notify shift coordinator nurseSelwyn.
[2024-02-02] MEDS: FLEXERIL 5 MG PO (21:23)
[2024-02-02] MEDS: VITAMIN B-6 100 MG PO (21:24)
[2024-02-02] MEDS: ELAVIL 75 MG PO (21:24)
[2024-02-02 21:54] LABS: Glucose - Point of Care 99 mg/dl (70-99)
[2024-02-03] VITALS (8 sets, daily range): BP systolic 106–176; BP diastolic 50–81; PULSE 77–92; O2SAT 97; BMI 31.6
[2024-02-03] MEDS: SYNTHROID 75 MCG PO (06:13)
[2024-02-03 07:11] LABS: % Basophils 0.6 % (0-2); % Eosinophils 6.9 % (0-6); % Immature Granulocytes 1.2 % (0-0.5); % Lymphocytes 38.3 % (20.5-51.1); % Monocytes 7.8 % (1.7-9.3); % Neutrophils 45.2 % (42.2-75.2); Absolute Eosinophils 0.5 10^3/uL (0-0.7); Absolute Immature Granulocytes 0.1 10^3/uL (0-0.05); Absolute Lymphocytes 2.5 10^3/uL (1.2-3.4); Absolute Monocytes 0.5 10^3/uL (0.1-0.6); Absolute Neutrophils 2.9 10^3/uL (1.4-6.5); Hematocrit 34.1 % (37.0-47.0); Hemoglobin 11.2 g/dL (12.0-16.0); Mean Corp Hgb Conc. 32.8 g/dL (33.0-37.0); Mean Corpuscular Hgb 30.1 pg (27.0-31.0); Mean Corpuscular Volume 91.7 fL (81.0-99.0); Mean Platelet Volume 8.9 fL (7.4-10.4); Nucleated Red Blood Cells % 0 %; Platelet Count 189 10^3/uL (130-400); Red Blood Cell Count 3.72 10^6/uL (4.20-5.40); Red Cell Dist. Width 12.7 % (11.5-14.5); White Blood Cell Count 6.5 10^3/uL (4.8-10.8)
[2024-02-03 07:32] LABS: ALT (SGPT) 23 U/L (0-35); AST (SGOT) 23 U/L (14-36); Alkaline Phosphatase 99 U/L (38-126); Blood Urea Nitrogen 21 mg/dl (7-17); Calcium 8.5 mg/dl (8.4-10.2); Carbon Dioxide 23 mmol/L (22-30); Chloride 109 mmol/L (98-107); Estimated Creatinine Clearance 38 ml/min; Glucose 93 mg/dl (70-99); Potassium 4.8 mmol/L (3.5-5.1); Sodium 142 mmol/L (135-145); Total Bilirubin 0.4 mg/dl (0.2-1.3); Total Protein 5.9 g/dl (6.3-8.2)
[2024-02-03 07:43] LABS: Glucose - Point of Care 106 mg/dl (70-99)
[2024-02-03] MEDS: NORVASC 2.5 MG PO (07:58)
[2024-02-03] MEDS: NOVOLOG FLEXPEN-LOW RESISTANCE SC ×3 (07:58→17:53)
[2024-02-03] MEDS: VESICARE 5 MG PO (07:58)
[2024-02-03] MEDS: TYLENOL 650 MG PO (08:01)
[2024-02-03 11:46] LABS: Glucose - Point of Care 146 mg/dl (70-99)
--- NOTE | 2024-02-03 12:56 | W.PN.HOSP.TC ---
Today's Communication/Plan
-
Monitor vital signs see plan
Speech to evaluate
Monitor renal function
PT/OT
Discharge planning
Assessment / Plan
Assessment / Plan
General: Well Nourished and No Apparent Distress
HEENT: Anicteric and Moist mucous membranes
Respiratory: Clear and Non Labored Respirations; No Wheezes
Cardiac: S1/S2 and Regular Rhythm
GI: Soft, Non Tender and Non Distended
Musculoskeletal: No Edema
Neuro: Awake, Alert, Oriented and AO x 3
Psych: Calm and Intact Judgment/Insight
Weakness and lightheadedness likely secondary to acute dehydration from ongoing nausea vomiting and diarrhea
mechanical fall 2/2 weakness; denies loss of consciousness
IVF
pt/ot
mild partial SBO on CT
resolved
Abdominal x-ray 02/01 with contrast in colon, started diet
suspected dislodgment, choking 02/01
X-ray without any impaction
Currently without any symptoms, speech to evaluate
Suspected ischemic colitis, unknown acuity
lactate normal, appears pain is improving
Continue to monitor; diarrhea resolved
cdiff neg,no WBC in stool
Mild traumatic rhabdomyolysis secondary to fall
Monitor CK
Fluids
Mild hyponatremia
monitor
acute kidney injury
Creatinine on admission 2.8, creatinine now 1.1
Unknown baseline creatinine however patient reports no history of chronic kidney disease
Bladder scan
Monitor creatinine with fluids
Ua collected in ED has lots of sq cells; denies any UTI symptoms
Chronic back pain status post spinal stimulator
Follows up with pain management at [facility]
Continue to monitor
On amitriptyline
History of egg-ztvofyf-vvkfvuohc responses
Currently being controlled with diet and exercise, per family last A1c 6
A1c 6.8; ISS,accuchecks
History of hypertension
Continue amlodipine, hold lisinopril
DVT prophylaxis
SCDs
CODE STATUS
DNR, confirmed with patient and family at bedside
I spent a total of 52 minutes with the patient or on the floor. More than 50% of this time involved counseling and coordination of care.
Anticipated Discharge: Within 24 hours
Subjective/Interval History
-
Date of Service: February 03, 2024
denies pain
Objective Data
-
Labs:
Laboratory Results
02/03/24
06:25
WBC 6.5
Hgb 11.2 L
Hct 34.1 L
Plt Count 189
Sodium 142
Potassium 4.8
Chloride 109 H
Carbon Dioxide 23
BUN 21 H
Creatinine 1.1 H
Glucose 93
Calcium 8.5
Total Bilirubin 0.4
AST 23
ALT 23
Alkaline Phosphatase 99
Vital Signs:
Vital Signs
Temp Pulse Resp BP Pulse Ox
98.7 F 84 17 126/65 97
02/03/24 11:40 02/03/24 11:40 02/03/24 11:40 02/03/24 11:40 02/03/24 11:40
I&O
02/02/24 02/03/24 02/04/24
06:59 06:59 06:59
Intake Total 2047 360 / 360
Output Total 400 / 400
Balance 1648 / 1648 360 / 360
--- NOTE | 2024-02-03 14:40 | PTOTSP ---
SPEECH THERAPY SWALLOW EVALUATION:
Patient exhibits clinical signs of oropharyngeal dysphagia, likely chronic related to weakness/deconditioning with possible component unknown etiology. Pt remains at risk for aspiration and related complications given history of choking episodes.
Recommend IDDSI Level 6 Soft and Bite Size diet, thin liquids. Medications whole with liquid as best tolerated. Aspiration precautions: Upright positioning; Small single sips/bites; Slow rate of intake; Partial supervision with meals; Alternate
textures; Reduced distractions during meals; Remain upright 30 minutes after eating/drinking; Extra sauces/gravies as needed; Oral care 3x/day; Monitor for signs of aspiration; D/c oral diet if any decline in mental or respiratory status. Recommend
Videofluoroscopic Swallowing Study to further assess swallow physiology. Given chronicity of dysphagia, pt appears safe to continue oral diet until VSE. Discussed with Dr. Day; Given that pt is to d/c tomorrow (Tuesday) would recommend VSE as an
Outpatient. ST to follow.
RECOMMEND:
1) IDDSI Level 6 Soft and Bite Size diet, thin liquids
2) Medications whole with liquid as best tolerated
3) Aspiration precautions: Upright positioning; Small single sips/bites; Slow rate of intake; Partial supervision with meals; Alternate textures; Reduced distractions during meals; Remain upright 30 minutes after eating/drinking; Extra
sauces/gravies as needed; Oral care 3x/day; Monitor for signs of aspiration; D/c oral diet if any decline in mental or respiratory status
4) Videofluoroscopic Swallowing Study (Outpatient)
5) ST to follow
[2024-02-03 16:54] LABS: Glucose - Point of Care 109 mg/dl (70-99)
[2024-02-03] MEDS: VITAMIN B-6 100 MG PO (21:00)
[2024-02-03] MEDS: FLEXERIL 5 MG PO (21:00)
[2024-02-03] MEDS: ELAVIL 75 MG PO (21:00)
[2024-02-03 21:37] LABS: Glucose - Point of Care 113 mg/dl (70-99)
[2024-02-03] MEDS: DILAUDID 0.5 MG IV (23:36)
[2024-02-04] VITALS (8 sets, daily range): BP systolic 126–180; BP diastolic 70–86; BMI 31.5
[2024-02-04] MEDS: SYNTHROID 75 MCG PO (06:31)
[2024-02-04 06:39] LABS: % Basophils 0.7 % (0-2); % Eosinophils 7.8 % (0-6); % Immature Granulocytes 2.1 % (0-0.5); % Lymphocytes 37.2 % (20.5-51.1); % Monocytes 7.1 % (1.7-9.3); % Neutrophils 45.1 % (42.2-75.2); Absolute Basophils 0.1 10^3/uL (0-0.2); Absolute Eosinophils 0.6 10^3/uL (0-0.7); Absolute Immature Granulocytes 0.2 10^3/uL (0-0.05); Absolute Lymphocytes 2.8 10^3/uL (1.2-3.4); Absolute Monocytes 0.5 10^3/uL (0.1-0.6); Absolute Neutrophils 3.4 10^3/uL (1.4-6.5); Hematocrit 33.8 % (37.0-47.0); Hemoglobin 11.4 g/dL (12.0-16.0); Mean Corp Hgb Conc. 33.7 g/dL (33.0-37.0); Mean Corpuscular Hgb 29.5 pg (27.0-31.0); Mean Corpuscular Volume 87.6 fL (81.0-99.0); Mean Platelet Volume 8.7 fL (7.4-10.4); Nucleated Red Blood Cells % 0 %; Platelet Count 217 10^3/uL (130-400); Red Blood Cell Count 3.86 10^6/uL (4.20-5.40); Red Cell Dist. Width 12.6 % (11.5-14.5); White Blood Cell Count 7.6 10^3/uL (4.8-10.8)
[2024-02-04 06:40] LABS: ALT (SGPT) 22 U/L (0-35); AST (SGOT) 22 U/L (14-36); Alkaline Phosphatase 99 U/L (38-126); Blood Urea Nitrogen 18 mg/dl (7-17); Calcium 8.6 mg/dl (8.4-10.2); Carbon Dioxide 24 mmol/L (22-30); Chloride 107 mmol/L (98-107); Estimated Creatinine Clearance 38 ml/min; Glucose 113 mg/dl (70-99); Potassium 4.3 mmol/L (3.5-5.1); Sodium 140 mmol/L (135-145); Total Bilirubin 0.4 mg/dl (0.2-1.3); Total Protein 5.8 g/dl (6.3-8.2)
[2024-02-04 08:12] LABS: Glucose - Point of Care 107 mg/dl (70-99)
[2024-02-04] MEDS: NOVOLOG FLEXPEN-LOW RESISTANCE SC ×3 (08:17→17:09)
[2024-02-04] MEDS: VESICARE 5 MG PO (08:19)
[2024-02-04] MEDS: NORVASC 2.5 MG PO (08:19)
[2024-02-04] MEDS: TYLENOL 650 MG PO ×2 (09:25→17:01)
--- NOTE | 2024-02-04 10:39 | W.PN.HOSP.TC ---
Today's Communication/Plan
-
Monitor vital signs
see plan
Continue to monitor creatinine
Continue with dysphagia diet
Discharge planning
Assessment / Plan
Assessment / Plan
General: Well Nourished and No Apparent Distress
HEENT: Anicteric and Moist mucous membranes
Respiratory: Clear and Non Labored Respirations; No Wheezes
Cardiac: S1/S2 and Regular Rhythm
GI: Soft, Non Tender and Non Distended
Musculoskeletal: No Edema
Neuro: Awake, Alert, Oriented and AO x 3
Psych: Calm and Intact Judgment/Insight
Weakness and lightheadedness likely secondary to acute dehydration from ongoing nausea vomiting and diarrhea
mechanical fall 2/2 weakness; denies loss of consciousness
pt/ot rec snf
mild partial SBO on CT
resolved
Abdominal x-ray 02/01 with contrast in colon, started diet
suspected dislodgment, choking 02/01
X-ray without any impaction
Currently without any symptoms, evaluated by speech, IDD 6 diet with thin liquids. VSE outpatient
Suspected ischemic colitis, unknown acuity
lactate normal, appears pain is improving
Continue to monitor; diarrhea resolved
cdiff neg,no WBC in stool
Mild traumatic rhabdomyolysis secondary to fall
Monitor CK
Fluids
Mild hyponatremia
monitor
acute kidney injury
Creatinine on admission 2.8, creatinine now 1.1
Unknown baseline creatinine however patient reports no history of chronic kidney disease
Bladder scan
Monitor creatinine with fluids
Ua collected in ED has lots of sq cells; denies any UTI symptoms
Chronic back pain status post spinal stimulator
Follows up with pain management at [facility]
Continue to monitor
On amitriptyline
History of xhx-eyucguh-azrqykphl responses
Currently being controlled with diet and exercise, per family last A1c 6
A1c 6.8; ISS,accuchecks
History of hypertension
Continue amlodipine, hold lisinopril
DVT prophylaxis
SCDs
CODE STATUS
DNR, confirmed with patient and family at bedside
Anticipated Discharge: Within 24 hours
Subjective/Interval History
-
Date of Service: February 04, 2024
denies pain
Objective Data
-
Labs:
Laboratory Results
02/04/24
06:00
WBC 7.6
Hgb 11.4 L
Hct 33.8 L
Plt Count 217
Sodium 140
Potassium 4.3
Chloride 107
Carbon Dioxide 24
BUN 18 H
Creatinine 1.1 H
Glucose 113 H
Calcium 8.6
Total Bilirubin 0.4
AST 22
ALT 22
Alkaline Phosphatase 99
Vital Signs:
Vital Signs
Temp Pulse Resp BP Pulse Ox
98.4 F 77 18 162/71 99
02/04/24 07:00 02/04/24 08:19 02/04/24 07:00 02/04/24 08:19 02/04/24 07:00
I&O
02/03/24 02/04/24 02/05/24
06:59 06:59 06:59
Intake Total 360 / 360 1200 / 1200
Balance 360 / 360 1200 / 1200
[2024-02-04] MEDS: APRESOLINE 5 MG IV ×2 (12:04→16:57)
[2024-02-04 12:16] LABS: Glucose - Point of Care 113 mg/dl (70-99)
--- NOTE | 2024-02-04 16:09 | CHAP ---
Long visit with Jayla, who has struggled with her bossman, but 'hopes that God is there.' She shared stories about her life, her growing up, her family , her children, her gnosticism background. Emotional and spiritual support provided. Will follow
as able.
[2024-02-04 17:09] LABS: Glucose - Point of Care 94 mg/dl (70-99)
--- NOTE | 2024-02-04 17:44 | PTCARENOTE ---
Patient had a manual BP of 170/76 at 1645. Provider notified. Stat hydralizine ordered. BP 126/86 at 1742.
[2024-02-04 21:20] LABS: Glucose - Point of Care 103 mg/dl (70-99)
[2024-02-04] MEDS: ZESTRIL 2.5 MG PO (21:23)
[2024-02-04] MEDS: VITAMIN B-6 100 MG PO (21:23)
[2024-02-04] MEDS: ELAVIL 75 MG PO (21:23)
[2024-02-04] MEDS: FLEXERIL 5 MG PO (21:24)
[2024-02-04] MEDS: DILAUDID 0.5 MG IV (22:59)
[2024-02-05 03:00] VITALS: BP 137/64; BP 150/80; BP 153/84; PULSE 74; PULSE 84; PULSE 85
[2024-02-05] MEDS: SYNTHROID 75 MCG PO (05:51)
[2024-02-05 06:00] VITALS: BMI 31.3
[2024-02-05 07:00] VITALS: BP 160/69
[2024-02-05 07:02] LABS: % Basophils 0.8 % (0-2); % Eosinophils 6.4 % (0-6); % Immature Granulocytes 2.1 % (0-0.5); % Lymphocytes 33.4 % (20.5-51.1); % Monocytes 6.5 % (1.7-9.3); % Neutrophils 50.8 % (42.2-75.2); Absolute Basophils 0.1 10^3/uL (0-0.2); Absolute Eosinophils 0.5 10^3/uL (0-0.7); Absolute Immature Granulocytes 0.2 10^3/uL (0-0.05); Absolute Lymphocytes 2.7 10^3/uL (1.2-3.4); Absolute Monocytes 0.5 10^3/uL (0.1-0.6); Hematocrit 35.9 % (37.0-47.0); Hemoglobin 11.7 g/dL (12.0-16.0); Mean Corp Hgb Conc. 32.6 g/dL (33.0-37.0); Mean Corpuscular Hgb 29.3 pg (27.0-31.0); Mean Platelet Volume 8.4 fL (7.4-10.4); Nucleated Red Blood Cells % 0 %; Platelet Count 223 10^3/uL (130-400); Red Blood Cell Count 3.99 10^6/uL (4.20-5.40); Red Cell Dist. Width 12.7 % (11.5-14.5); White Blood Cell Count 7.9 10^3/uL (4.8-10.8)
[2024-02-05 07:07] LABS: ALT (SGPT) 31 U/L (0-35); AST (SGOT) 32 U/L (14-36); Albumin 3.3 g/dl (3.5-5.0); Alkaline Phosphatase 104 U/L (38-126); Blood Urea Nitrogen 15 mg/dl (7-17); Calcium 8.7 mg/dl (8.4-10.2); Carbon Dioxide 26 mmol/L (22-30); Chloride 105 mmol/L (98-107); Estimated Creatinine Clearance 38 ml/min; Glucose 116 mg/dl (70-99); Potassium 4.8 mmol/L (3.5-5.1); Sodium 140 mmol/L (135-145); Total Bilirubin 0.4 mg/dl (0.2-1.3); Total Protein 6.3 g/dl (6.3-8.2)
[2024-02-05 08:02] LABS: Glucose - Point of Care 109 mg/dl (70-99)
[2024-02-05] MEDS: NOVOLOG FLEXPEN-LOW RESISTANCE SC ×3 (08:33→17:07)
[2024-02-05] MEDS: VESICARE 5 MG PO (08:44)
[2024-02-05] MEDS: NORVASC 5 MG PO (08:44)
[2024-02-05] MEDS: NORVASC PO (08:55)
[2024-02-05] MEDS: TYLENOL 650 MG PO (10:24)
[2024-02-05 11:23] VITALS: BP 151/68
--- NOTE | 2024-02-05 11:28 | W.PN.HOSP.TC ---
Addendum entered and electronically signed by Jacobo Day MD 02/05/24 16:35:
6 mm incidental pulmonary nodule, patient to follow-up outpatient with repeat CT scan in 1 year
Original Note:
Today's Communication/Plan
-
Monitor vital signs
see plan
Discussed with machine adjuster leader case trim, does not have any placement today
Increase amlodipine
Assessment / Plan
Assessment / Plan
General: Well Nourished and No Apparent Distress
HEENT: Anicteric and Moist mucous membranes
Respiratory: Clear and Non Labored Respirations; No Wheezes
Cardiac: S1/S2 and Regular Rhythm
GI: Soft, Non Tender and Non Distended
Musculoskeletal: No Edema
Neuro: Awake, Alert, Oriented and AO x 3
Psych: Calm and Intact Judgment/Insight
Weakness and lightheadedness likely secondary to acute dehydration from ongoing nausea vomiting and diarrhea
mechanical fall 2/2 weakness; denies loss of consciousness
pt/ot rec snf
mild partial SBO on CT
resolved
Abdominal x-ray 02/01 with contrast in colon, tolerating diet
suspected dislodgment, choking 02/01
X-ray without any impaction
Currently without any symptoms, evaluated by speech, IDD 6 diet with thin liquids. VSE outpatient
Suspected ischemic colitis, unknown acuity
lactate normal, appears pain is improving
Continue to monitor; diarrhea resolved
cdiff neg,no WBC in stool
will need vascular f/u outpatient
Mild traumatic rhabdomyolysis secondary to fall
improved
Mild hyponatremia
resolved
acute kidney injury
Creatinine on admission 2.8, creatinine now 1.1
Unknown baseline creatinine however patient reports no history of chronic kidney disease
Bladder scan
Monitor creatinine with fluids
Ua collected in ED has lots of sq cells; denies any UTI symptoms
Chronic back pain status post spinal stimulator
Follows up with pain management at [facility]
Continue to monitor
On amitriptyline
History of kgi-txaetxw-brilyyqej responses
Currently being controlled with diet and exercise, per family last A1c 6
A1c 6.8; ISS,accuchecks
History of hypertension
Increase amlodipine, restarted lisinopril
DVT prophylaxis
SCDs
CODE STATUS
DNR, confirmed with patient and family at bedside
Discussed with machine adjuster leader case trim, patient does not have any placement today
Anticipated Discharge: Within 24 hours
Subjective/Interval History
-
Date of Service: February 05, 2024
denies pain
Objective Data
-
Labs:
Laboratory Results
02/05/24
06:25
WBC 7.9
Hgb 11.7 L
Hct 35.9 L
Plt Count 223
Sodium 140
Potassium 4.8
Chloride 105
Carbon Dioxide 26
BUN 15
Creatinine 1.1 H
Glucose 116 H
Calcium 8.7
Total Bilirubin 0.4
AST 32
ALT 31
Alkaline Phosphatase 104
Vital Signs:
Vital Signs
Temp Pulse Resp BP Pulse Ox
98 F 79 16 151/68 100
02/05/24 11:23 02/05/24 11:23 02/05/24 11:23 02/05/24 11:23 02/05/24 11:23
I&O
02/04/24 02/05/24 02/06/24
06:59 06:59 06:59
Intake Total 1200 / 1200 720 / 720 240 / 240
Balance 1200 / 1200 720 / 720 240 / 240
[2024-02-05 12:53] LABS: Glucose - Point of Care 83 mg/dl (70-99)
--- NOTE | 2024-02-05 13:48 | CHAP ---
Returned to finish the visit that was interrupted yesterday. Jayla recapped last night's events and some of yesterday's stories. We then read and reflected on Psalms 23 and 91. Fruitful discussion. Emotional and spiritual support provided.
[2024-02-05 15:00] VITALS: BP 146/64
--- NOTE | 2024-02-05 16:14 | CM ---
Referrals placed for SNF. Auth will be needed. [place] has a female bed and is evaluating referral.
[2024-02-05 17:02] LABS: Glucose - Point of Care 81 mg/dl (70-99)
[2024-02-05 19:35] VITALS: BP 143/63
[2024-02-05 21:44] LABS: Glucose - Point of Care 140 mg/dl (70-99)
[2024-02-05] MEDS: ELAVIL 75 MG PO (22:21)
[2024-02-05] MEDS: FLEXERIL 5 MG PO (22:21)
[2024-02-05] MEDS: VITAMIN B-6 100 MG PO (22:22)
[2024-02-05] MEDS: ZESTRIL 2.5 MG PO (22:22)
[2024-02-05] MEDS: DILAUDID 0.5 MG IV (22:23)
[2024-02-05 23:14] VITALS: BP 158/76
[2024-02-06 03:25] VITALS: BP 125/54
[2024-02-06 05:50] VITALS: BMI 31.0
[2024-02-06] MEDS: SYNTHROID 75 MCG PO (05:55)
[2024-02-06 07:12] VITALS: BP 144/60
[2024-02-06 07:25] LABS: Glucose - Point of Care 134 mg/dl (70-99)
[2024-02-06 07:43] LABS: % Basophils 0.9 % (0-2); % Eosinophils 5.6 % (0-6); % Immature Granulocytes 2.3 % (0-0.5); % Lymphocytes 32.1 % (20.5-51.1); % Monocytes 7.1 % (1.7-9.3); Absolute Basophils 0.1 10^3/uL (0-0.2); Absolute Eosinophils 0.4 10^3/uL (0-0.7); Absolute Immature Granulocytes 0.2 10^3/uL (0-0.05); Absolute Lymphocytes 2.5 10^3/uL (1.2-3.4); Absolute Monocytes 0.6 10^3/uL (0.1-0.6); Absolute Neutrophils 4.1 10^3/uL (1.4-6.5); Hematocrit 36.3 % (37.0-47.0); Hemoglobin 11.9 g/dL (12.0-16.0); Mean Corp Hgb Conc. 32.8 g/dL (33.0-37.0); Mean Corpuscular Hgb 29.5 pg (27.0-31.0); Mean Corpuscular Volume 89.9 fL (81.0-99.0); Mean Platelet Volume 8.5 fL (7.4-10.4); Nucleated Red Blood Cells % 0 %; Platelet Count 226 10^3/uL (130-400); Red Blood Cell Count 4.04 10^6/uL (4.20-5.40); Red Cell Dist. Width 12.9 % (11.5-14.5); White Blood Cell Count 7.9 10^3/uL (4.8-10.8)
[2024-02-06 08:26] LABS: ALT (SGPT) 34 U/L (0-35); AST (SGOT) 33 U/L (14-36); Albumin 3.3 g/dl (3.5-5.0); Alkaline Phosphatase 107 U/L (38-126); Blood Urea Nitrogen 14 mg/dl (7-17); Calcium 8.8 mg/dl (8.4-10.2); Carbon Dioxide 23 mmol/L (22-30); Chloride 104 mmol/L (98-107); Estimated Creatinine Clearance 38 ml/min; Glucose 125 mg/dl (70-99); Potassium 4.5 mmol/L (3.5-5.1); Sodium 138 mmol/L (135-145); Total Bilirubin 0.4 mg/dl (0.2-1.3); Total Protein 6.1 g/dl (6.3-8.2)
[2024-02-06] MEDS: NOVOLOG FLEXPEN-LOW RESISTANCE SC ×3 (08:42→18:14)
[2024-02-06] MEDS: VESICARE 5 MG PO (08:44)
[2024-02-06] MEDS: NORVASC 5 MG PO (08:44)
[2024-02-06 11:00] VITALS: BP 132/72
--- NOTE | 2024-02-06 11:18 | CM ---
Addendum entered by Jeane Encarnacion 02/06/24 14:05:
Accepted by [facility]
Original Note:
Chart reviewed. Spoke with pt
Pt seen by PT today - recommending HH. Was previously for SNF
Discussed with pt - prefers home with HH
Requesting [facility] - has had in past
Referral placed in [facility]
Discussed IMM
Plan - anticipates home with [facility] when medically stable
f - [phone]
--- NOTE | 2024-02-06 11:24 | W.PN.HOSP.TC ---
Today's Communication/Plan
-
OT consult
Discharge
Assessment / Plan
Assessment / Plan
General: Well Nourished and No Apparent Distress
HEENT: Anicteric and Moist mucous membranes
Respiratory: Clear and Non Labored Respirations; No Wheezes
Cardiac: S1/S2 and Regular Rhythm
GI: Soft, Non Tender and Non Distended
Musculoskeletal: No Edema
Neuro: Awake, Alert, Oriented and AO x 3
Psych: Calm and Intact Judgment/Insight
Weakness and lightheadedness - likely secondary to acute dehydration from ongoing nausea vomiting and diarrhea
mechanical fall 2/2 weakness; denies loss of consciousness
mild partial SBO on CT
resolved
Abdominal x-ray 02/01 with contrast in colon, tolerating diet
suspected dislodgment, choking 02/01
X-ray without any impaction
Currently without any symptoms, evaluated by speech, IDD 6 diet with thin liquids. VSE outpatient
Suspected ischemic colitis, unknown acuity
lactate normal, appears pain is improving
Continue to monitor; diarrhea resolved
cdiff neg,no WBC in stool
will need vascular f/u outpatient
Mild traumatic rhabdomyolysis secondary to fall
improved
Mild hyponatremia
resolved
MECCA- resolved. Likely due to volume depletion.
Creatinine on admission 2.8, creatinine now 1.1
Unknown baseline creatinine however patient reports no history of chronic kidney disease
Bladder scan
Monitor creatinine with fluids
Ua collected in ED has lots of sq cells; denies any UTI symptoms
Chronic back pain status post spinal stimulator
Follows up with pain management at [facility]
Continue to monitor
On amitriptyline
History of tnp-csrxivw-mzxgzbaba responses
Currently being controlled with diet and exercise, per family last A1c 6
A1c 6.8; ISS,accuchecks
Essential hypertension
Increase amlodipine, restarted lisinopril
DVT prophylaxis
SCDs
CODE STATUS
DNR, confirmed with patient and family at bedside
Dispo -medically stable for discharge home this afternoon. Discussed with case management. Awaiting OT input. Cleared for discharge home by PT.
31 minutes spent in discharge process.
Anticipated Discharge: Today
Subjective/Interval History
-
Date of Service: February 06, 2024
Patient seen and examined. No complaints.
Objective Data
-
Labs:
Laboratory Results
02/06/24
07:01
WBC 7.9
Hgb 11.9 L
Hct 36.3 L
Plt Count 226
Sodium 138
Potassium 4.5
Chloride 104
Carbon Dioxide 23
BUN 14
Creatinine 1.1 H
Glucose 125 H
Calcium 8.8
Total Bilirubin 0.4
AST 33
ALT 34
Alkaline Phosphatase 107
Vital Signs:
Vital Signs
Temp Pulse Resp BP Pulse Ox
98.2 F 78 17 132/72 97
02/06/24 11:00 02/06/24 11:00 02/06/24 11:00 02/06/24 11:00 02/06/24 11:00
I&O
02/05/24 02/06/24 02/07/24
06:59 06:59 06:59
Intake Total 720 / 720 1919
Balance 720 / 720 1919
Review of Systems
-
History Source: Patient
All other systems: Reviewed and negative
--- NOTE | 2024-02-06 11:28 | W.DS.TRANS ---
DC Summary - Loom Operator
-
Discharge Instructions:
Discharge Diagnosis/Procedures Ambulatory dysfunction
Dehydration
Partial small bowel obstruction
Dysphagia
Suspected ischemic colitis
Traumatic rhabdomyolysis
Acute kidney injury
Diet Other diet
Additional Diets Soft and bite-size with thin liquids
Activity With assistance,As tolerated
Driving Restrictions As prior to admission
Others Tests VSE outpatient
Instructions:
Stand-Alone Forms:
Changes to Home Medications: Yes
Discharge Medications:
DC Medications w/original date entered in [facility] [facility]
amitriptyline 75 mg tablet 75 mg PO HS Back pain/sleep 01/31/24
levothyroxine 75 mcg tablet 75 mcg PO DAILY Thyroid 01/31/24
lisinopril 5 mg tablet 2.5 mg PO HS Blood Pressure 01/31/24
magnesium oxide 400 mg PO HS Electrolyte Repletion 01/31/24
methocarbamol 500 mg tablet 500 mg PO HS Muscle Spasms 01/31/24
pyridoxine (vitamin B6) 100 mg tablet (Vitamin B-6) 100 mg PO HS Supplement 01/31/24
solifenacin 10 mg tablet 10 mg PO DAILY Urinary Issue 01/31/24
acetaminophen 325 mg tablet 650 mg (2 x 325 mg) PO Q4HPRN PRN mild pain/GUTIERREZ/temp> 100.4F #0 tabs 02/05/24
amlodipine 5 mg tablet 5 mg PO DAILY #30 tabs 02/06/24
Home Medication Changes
Amlodipine dose increased.
Pending Results: No
[2024-02-06 11:31] LABS: Glucose - Point of Care 106 mg/dl (70-99)
[2024-02-06 12:42] VITALS: BP 127/64; BP 157/70; PULSE 89
[2024-02-06 15:05] VITALS: BP 134/63
[2024-02-06] MEDS: PREVNAR 20 0.5 ML IM (16:15)
[2024-02-06 16:52] LABS: Glucose - Point of Care 110 mg/dl (70-99)
== END 2024-02-06 18:23 | disposition home health service (06) | DRG 394 ==
LOC: 3 WEST ACU 19:06
PROVIDERS: Registered Nurse; ADMITTING PHYSICIAN Internal Medicine; ATTENDING PHYSICIAN Hospitalist; EMERGENCY PHYSICIAN Student in an Organized Health Care Education/Training Program; FAMILY PHYSICIAN Family Medicine
PROC: 3E0234Z Introduction of Serum, Toxoid and Vaccine into Muscle, Percutaneous Approach (ICD-10-PCS; 2024-02-06)
DX: K55.9 Vascular disorder of intestine, unspecified (principal); E87.1 Hypo-osmolality and hyponatremia; K56.600 Partial intestinal obstruction, unspecified as to cause; N17.9 Acute kidney failure, unspecified; T79.6XXA Traumatic ischemia of muscle, initial encounter; E86.0 Dehydration; R13.10 Dysphagia, unspecified; W19.XXXA Unspecified fall, initial encounter; K58.9 Irritable bowel syndrome, unspecified; E11.9 Type 2 diabetes mellitus without complications; I10 Essential (primary) hypertension; E03.9 Hypothyroidism, unspecified; G89.29 Other chronic pain; M54.50 Low back pain, unspecified; Z66 Do not resuscitate; Z91.148 Patient's other noncompliance with medication regimen for other reason; Z23 Encounter for immunization
CPT/HCPCS: 71046; 72100; 74018; 74176; 80053; 81003; 81015; 82550; 82553; 82962; 83036; 83605; 84443; 85025; 87045; 87046; 87070; 87086; 87147; 87324; 87427; 87449; 89055; 90677; 92526; 92610; 93005; 96360; 97116; 97162; 97166; 97530; 97535; 99285; G0009

== ENCOUNTER 2024-03-12 16:12 | Observation (INO) | payer OTHER, SELFPAY ==
[2024-03-12] VITALS (7 sets, daily range): BP systolic 120–181; BP diastolic 49–87; BMI 29.3
--- NOTE | 2024-03-12 11:07 | ED.GENMED ---
ED Provider Triage
<Sera Jasso KILN CAR UNLOADER - Last Filed: 03/12/24 11:11>
-
Patient seen by provider in Triage?: Seen in Triage
Attestation: A medical screening examination has been initiated by a qualified medical provider. Based on the assessment performed at this time, it has been determined that an emergent medical condition may exist and the patient has been informed
that further medical evaluation and possible additional diagnostic testing may be needed.
HPI: 78-year-old female states she has had nausea and vomiting since last night at dinnertime after eating steak and mashed potatoes. Denies diarrhea. Last emesis 8 a.m.
Hx. Chronic back pain
GENERAL: Alert , in no apparent distress
EYE: No visual abnormalities.
NECK: Trachea midline
ENT: No visible abnormalities.
LUNGS: No acute respiratory distress
NEUROLOGICAL: Alert and oriented
SKIN: Skin intact. No visible changes.
MUSCULOSKELETAL: Moving extremities normally
PSYCH: Normal and appropriate interaction.
This is a medical evaluation conducted in person to initiate diagnostic evaluation and provide initial therapeutics. Please see further documentation by the treating clinician.
History of Present Illness
<Sera Jasso KILN CAR UNLOADER - Last Filed: 03/12/24 11:11>
General
Chief Complaint: Abdominal Symptoms
Time Seen by Provider: 03/12/24 12:22
<Roni Nice PA-C - Last Filed: 03/12/24 15:25>
General
Source: patient
Exam Limitations: none
History of Present Illness
History of Present Illness:
78-year-old female presents via EMS from home where she lives by self with onset of nausea and vomiting with associated abdominal pain last evening. She has been unable to keep anything down since then. She feels very tired and weak. She notes
pain to the upper and right abdomen.
Past History
<Sera Jasso KILN CAR UNLOADER - Last Filed: 03/12/24 11:11>
Past History
ED Past Medical History: HTN, NIDDM, Hypothyroidism and Other (Chronic back pain under the care of pain management at [facility])
ED Past Surgical History: Orthopedic
Social History
Tobacco: Non-smoker
Living: alone ([facility])
Phy Exam
<ERICA MaciasC - Last Filed: 03/12/24 15:25>
Physical Exam
Physical Exam:
General: Well-appearing female no acute respiratory distress
HEENT: Normocephalic atraumatic neck is supple
Heart: Regular rate and rhythm
Lungs: Clear no wheeze abdomen: Soft tender to the epigastric and right side of the abdomen. No guarding rebound normal bowel sounds nondistended extremities: No cyanosis or edema
Skin: Warm no rash
Course
<Sera Jasso KILN CAR UNLOADER - Last Filed: 03/12/24 11:11>
Orders/Labs/Results
Orders:
Orders
03/12/24 11:09
Ondansetron Injectable [Zofran] 4 mg IV NOW STA
03/12/24 11:15
Comprehensive Metabolic Panel Urgent
Lipase Urgent
Comment: LIPASE ADDED ON BY FLOOR 1PM 03-12-24
03/12/24 11:19
Complete Blood Count/With Diff Urgent
03/12/24 12:59
CT Abd/pel Without Iv Or Oral Urgent
Comment: OKLanre NICE @106P
Reason For Exam: vomiting, abdominal pain
0.9% Sodium Chloride 1000 ml [Nss] 1,000 ml IV BOLUS
03/12/24 13:04
Add On- LAB Urgent
Tests Added?: lipase
Abnormal Lab Results
03/12/24 03/12/24
11:15 11:19
WBC 11.8 H 10^3/uL
(4.8-10.8)
Abs Immat Gran (auto) 0.1 H 10^3/uL
(0-0.05)
Absolute Neuts (auto) 9.0 H 10^3/uL
(1.4-6.5)
Absolute Monos (auto) 0.7 H 10^3/uL
(0.1-0.6)
Neutrophils % 76.5 H %
(42.2-75.2)
Lymphocytes % 16.0 L %
(20.5-51.1)
BUN 73 H mg/dl
(7-17)
Creatinine 1.8 H mg/dL
(0.6-1.0)
Glucose 259 H mg/dl
(70-99)
Alkaline Phosphatase 165 H U/L
(38-126)
Total Protein 8.8 H g/dl
(6.3-8.2)
03/12/24 11:19
03/12/24 11:15
Vital Signs
Initial and Last Documented VS:
Initial Vital Signs
Temp Pulse Resp BP Pulse Ox
98.1 F 53 18 120/64 92
03/12/24 11:07 03/12/24 11:07 03/12/24 11:07 03/12/24 11:07 03/12/24 11:07
Last Documented Vital Signs
Temp Pulse Resp BP Pulse Ox
98.1 F 53 18 120/64 92
03/12/24 11:07 03/12/24 11:07 03/12/24 11:07 03/12/24 11:07 03/12/24 11:07
Maurylt;Roni Nice PA-C - Last Filed: 03/12/24 15:25>
Orders/Labs/Results
Orders:
Orders
03/12/24 11:09
Ondansetron Injectable [Zofran] 4 mg IV NOW STA
03/12/24 11:15
Comprehensive Metabolic Panel Urgent
Lipase Urgent
Comment: LIPASE ADDED ON BY FLOOR 1PM 03-12-24
03/12/24 11:19
Complete Blood Count/With Diff Urgent
03/12/24 12:59
CT Abd/pel Without Iv Or Oral Urgent
Comment: OKLanre NICE @106P
Reason For Exam: vomiting, abdominal pain
0.9% Sodium Chloride 1000 ml [Nss] 1,000 ml IV BOLUS
03/12/24 13:04
Add On- LAB Urgent
Tests Added?: lipase
Abnormal Lab Results
03/12/24 03/12/24
11:15 11:19
WBC 11.8 H 10^3/uL
(4.8-10.8)
Abs Immat Gran (auto) 0.1 H 10^3/uL
(0-0.05)
Absolute Neuts (auto) 9.0 H 10^3/uL
(1.4-6.5)
Absolute Monos (auto) 0.7 H 10^3/uL
(0.1-0.6)
Neutrophils % 76.5 H %
(42.2-75.2)
Lymphocytes % 16.0 L %
(20.5-51.1)
BUN 73 H mg/dl
(7-17)
Creatinine 1.8 H mg/dL
(0.6-1.0)
Glucose 259 H mg/dl
(70-99)
Alkaline Phosphatase 165 H U/L
(38-126)
Total Protein 8.8 H g/dl
(6.3-8.2)
03/12/24 11:19
03/12/24 11:15
Vital Signs
Initial and Last Documented VS:
Initial Vital Signs
Temp Pulse Resp BP Pulse Ox
98.1 F 53 18 120/64 92
03/12/24 11:07 03/12/24 11:07 03/12/24 11:07 03/12/24 11:07 03/12/24 11:07
Last Documented Vital Signs
Temp Pulse Resp BP Pulse Ox
98.1 F 53 18 120/64 92
03/12/24 11:07 03/12/24 11:07 03/12/24 11:07 03/12/24 11:07 03/12/24 11:07
<Roni Nice PA-C - Last Filed: 03/12/24 15:25>
MDM/Problems Addressed
Differential Diagnosis Includes:
Nausea and vomiting without diarrhea currently. Patient does have comfort to her abdomen. Consider viral illness versus pancreatitis versus bowel obstruction
Prior surgical history includes cholecystectomy.
Will treat with fluids. CT pending
<Roni Nice PA-C - Last Filed: 03/12/24 15:25>
*Critical Care Note
Total Time (30-74mins, 75-104mins- exclusive of procedures): Not Applicable
<Roni Nice PA-C - Last Filed: 03/12/24 15:25>
Update Note
Update Note:
Patient reexamined. Still very weak. Patient has acute kidney injury with a creatinine of 1.[address] of the abdomen was negative for acute finding. Suspect underlying viral illness causing dehydration. MECCA likely prerenal. Will admit
ED Attending Note
<Sera Jasso KILN CAR UNLOADER - Last Filed: 03/12/24 11:11>
-
Portions of this chart may have been created with voice recognition software.� Occasional wrong word or��sound alike� substitutions may have occurred due to the inherent limitations of voice recognition software.
Discharge Plan
Departure
Patient Disposition: Admit
Date of Disposition: 03/12/24
Time of Disposition: 15:24
Admit to: Telemetry
Presentation/result/management discussed w/ accepting MD/DO: Hospitalist
Discharge Problem:
Vomiting, MECCA (acute kidney injury)
Prescriptions:
No Action
methocarbamol 500 mg tablet
500 mg PO HS
amitriptyline 75 mg tablet
75 mg PO HS
levothyroxine 75 mcg tablet
75 mcg PO DAILY
lisinopril 5 mg tablet
2.5 mg PO HS
solifenacin 10 mg tablet
10 mg PO DAILY
pyridoxine (vitamin B6) [Vitamin B-6] 100 mg Tablet
100 mg PO HS
magnesium oxide 400 mg magnesium Tablet
400 mg PO HS
acetaminophen 325 mg Tablet
650 mg PO Q4HPRN PRN (Reason: mild pain/GUTIERREZ/temp> 100.4F) Qty: 0 0RF
amlodipine 5 mg Tablet
5 mg PO DAILY Qty: 30 0RF
Referrals:
Brianna Kong MD [Family Provider] -
Interventions
Interventions:
*Risk Screen - Suicide Last Done: 03/12/24 11:07
*General Assessment Last Done: 03/12/24 11:07
*Neglect/Abuse Screening Last Done: 03/12/24 11:07
*ED COVID-19 Vaccine History Last Done: 03/12/24 12:15
CB-Eemhef-Ooxuuhxdmk Assessment Last Done: 03/12/24 12:17
Discharge Date and Time
Print Language: SPANISH
[2024-03-12 11:39] LABS: % Basophils 0.5 % (0-2); % Eosinophils 0.9 % (0-6); % Immature Granulocytes 0.4 % (0-0.5); % Monocytes 5.7 % (1.7-9.3); % Neutrophils 76.5 % (42.2-75.2); Absolute Basophils 0.1 10^3/uL (0-0.2); Absolute Eosinophils 0.1 10^3/uL (0-0.7); Absolute Immature Granulocytes 0.1 10^3/uL (0-0.05); Absolute Lymphocytes 1.9 10^3/uL (1.2-3.4); Absolute Monocytes 0.7 10^3/uL (0.1-0.6); Hematocrit 43.1 % (37.0-47.0); Hemoglobin 14.4 g/dL (12.0-16.0); Mean Corp Hgb Conc. 33.4 g/dL (33.0-37.0); Mean Corpuscular Volume 86.9 fL (81.0-99.0); Mean Platelet Volume 8.9 fL (7.4-10.4); Nucleated Red Blood Cells % 0 %; Platelet Count 378 10^3/uL (130-400); Red Blood Cell Count 4.96 10^6/uL (4.20-5.40); Red Cell Dist. Width 13.3 % (11.5-14.5); White Blood Cell Count 11.8 10^3/uL (4.8-10.8)
[2024-03-12 11:52] LABS: ALT (SGPT) 24 U/L (0-35); AST (SGOT) 21 U/L (14-36); Albumin 4.9 g/dl (3.5-5.0); Alkaline Phosphatase 165 U/L (38-126); Blood Urea Nitrogen 73 mg/dl (7-17); Carbon Dioxide 23 mmol/L (22-30); Chloride 102 mmol/L (98-107); Glucose 259 mg/dl (70-99); Potassium 4.9 mmol/L (3.5-5.1); Sodium 141 mmol/L (135-145); Total Protein 8.8 g/dl (6.3-8.2); eGFR 28.13
[2024-03-12] MEDS: ZOFRAN 4 MG IV (12:13)
[2024-03-12] MEDS: NSS 1000 IV ×2 (13:25→21:58)
[2024-03-12 13:38] LABS: Lipase 135 U/L (23-300)
--- NOTE | 2024-03-12 15:31 | HPS.HSE ---
Family Physician
-
Family Physician: Brianna Kong MD
Chief Complaint
-
vomitting
History of Present Illness
78-year-old female with PMH for back pain, hypertension, hypothyroidism, presented to us with nausea and vomiting since last night at dinnertime after eating steak and mashed potatoes. Denies diarrhea. Last emesis was 2 hours ago. Patient had a
fall last night in the bathroom. She was extremity lightheaded and fell in the bathroom. She hit her head on the back. And he is her right upper abdominal side on the basket which was hung on her walker. Patient denied any headache. Patient
denied any fever, chills, congestion, cough patient denied chest pain or short of breath patient denied dysuria hematuria..
CT abdomen pelvis with no acute findings. Patient received Zofran and normal saline in ER. Admitting for further management
Medical History
Past Medical History
Past Medical History: Reports Other
Additional Past Medical History:
Colonic ischemia
Partial intestinal obstruction
CKD
Past Surgical History: Reports Other
Additional Past Surgical History:
Right shoulder replacement
Bilateral knee replacement
Left hip replacement
Social History
Tobacco: Non-smoker
Alcohol: None
Drug: None
Living: Alone
Family History
Family History: Not pertinent
Allergies / Home Medications
Allergies reflects when Allergies were last updated in [employer].
Home Medications with original date entered in [employer]
Allergy/Medication List:
Allergies
Allergy/AdvReac Type Severity Reaction Status Date / Time
ampicillin Allergy Unknown Verified 03/12/24 11:07
aspirin [From Percodan] Allergy Unknown Verified 03/12/24 11:07
codeine Allergy Unknown Verified 03/12/24 11:07
erythromycin base Allergy Unknown Verified 03/12/24 11:07
levofloxacin Allergy Unknown Verified 03/12/24 11:07
losartan Allergy Unknown Verified 03/12/24 11:07
oxycodone Allergy Unknown Verified 03/12/24 11:07
Sulfa (Sulfonamide Allergy Unknown Verified 03/12/24 11:07
Antibiotics)
Home Medications
amitriptyline 75 mg tablet 75 mg PO HS Back pain/sleep 01/31/24
levothyroxine 75 mcg tablet 75 mcg PO DAILY Thyroid 01/31/24
lisinopril 5 mg tablet 2.5 mg PO HS Blood Pressure 01/31/24
magnesium oxide 400 mg PO HS Electrolyte Repletion 01/31/24
methocarbamol 500 mg tablet 500 mg PO HS Muscle Spasms 01/31/24
pyridoxine (vitamin B6) 100 mg tablet (Vitamin B-6) 100 mg PO HS Supplement 01/31/24
solifenacin 10 mg tablet 10 mg PO DAILY Urinary Issue 01/31/24
acetaminophen 325 mg tablet 650 mg (2 x 325 mg) PO Q4HPRN PRN mild pain/GUTIERREZ/temp> 100.4F #0 tabs 02/05/24
amlodipine 5 mg tablet 5 mg PO DAILY #30 tabs 02/06/24
Review of Systems
-
Constitutional: Reports No Symptoms
EENT: Reports No Symptoms
Respiratory: Reports No Symptoms
Cardiac: Reports No Symptoms
Abdomen/GI: Reports Nausea and Vomiting
: Reports No Symptoms
Musculoskeletal: Reports No Symptoms
Skin: Reports No Symptoms
Neurological: Reports No Symptoms
Endocrine: Reports No Symptoms
Hematologic/Lymphatic: Reports No Symptoms
Psych: Reports No Symptoms
Physical Exam
Vital Signs
Vital Signs
Temp Pulse Resp BP Pulse Ox
98.1 F 53 18 120/64 92
03/12/24 11:07 03/12/24 11:07 03/12/24 11:07 03/12/24 11:07 03/12/24 11:07
Physical Exam
General: Well Developed, Well Nourished and No Apparent Distress
HEENT: NormoCephalic, Moist mucous membranes and Atraumatic
Respiratory: Clear
Cardiac: S1/S2 and Regular Rhythm; No Murmur or Rub
GI: Soft, Non Distended, Normal Bowel Sounds and Tender (Right upper quadrant); No Organomegaly
Rectal: Deferred by Provider
Musculoskeletal: No Clubbing, No Cyanosis and No Edema
Skin: No Rash
Neuro: AO x 3 and Nonfocal/grossly intact
Psych: Calm
Laboratory Results
-
03/12/24 11:19
03/12/24 11:15
Laboratory Results
Total Bilirubin 1.0 mg/dl (0.2-1.3) 03/12/24 11:15
AST 21 U/L (14-36) 03/12/24 11:15
ALT 24 U/L (0-35) 03/12/24 11:15
Alkaline Phosphatase 165 U/L (38-126) H 03/12/24 11:15
Lipase 135 U/L (23-300) 03/12/24 11:15
Data Reviewed
-
CT Scan: Report Reviewed by me
Lab Data: Labs Reviewed by me
Impression/Plan
-
# Nausea/vomiting likely gastroenteritis
-CT abdomen pelvis with no evidence of acute pathology
Imaging for bowel pathology is limited by the lack of enteric contrast
Diverticuli are present in the colon with no CT evidence of diverticulitis
There is multilevel lumbar degenerative disc disease
-Zofran as needed for nausea vomiting
-Clear liquid diet advance as tolerated
# fall/ lightheaded from volume depletion
#right upper ribs pain
-PT/OT consulted
-obtain orthostatics
-tramdol prn for pain
# Acute kidney injury on CKD stage II likely from dehydration secondary to vomiting
-Creatinine 1.8
-Normal saline continued
-Monitor BMP in
-WBC 11.8
#leukocytosis likely stress reaction
-Patient is afebrile
-Obtain urinalysis
#Chronic back pain status post spinal stimulator
Follows up with pain management at [facility]
Continue to monitor
On amitriptyline
#Essential hypertension
-continue amlodipine
-hold lisinopril
# Hypothyroidism
-Levothyroxine
DVT prophylaxis
heparin sq
CODE STATUS
DNR,
--- NOTE | 2024-03-12 16:11 | W.PN.UPDATE ---
Update Note
Progress Note Update
This is an addendum to the H&P written by Noa Mckay on 03/12/2024. Patient seen and examined independently with [employer].
78-year-old female past medical history of hypertension, chronic back pain, hypothyroidism, presenting with vomiting since last night after eating steak and mashed potatoes yesterday. No diarrhea.
Patient also had a fall with lightheadedness possible syncopal episode and hit the right costochondral area on a basket which was hung on her walker.
Labs show MECCA and leukocytosis. CT abdomen pelvis shows no evidence of acute pathology in the abdomen.
Patient likely has food poisoning/gastroenteritis. No diarrhea to check stool cultures. IV fluids for MECCA. Patient is tender in the right costal margin area on the rib. Toradol for pain. Hold lisinopril. Clear liquid diet.
[2024-03-12] MEDS: TORADOL 15 MG IV (16:40)
[2024-03-12] MEDS: HEPARIN SC (21:31)
[2024-03-12] MEDS: MAG-TAB SR 84 MG PO (22:00)
[2024-03-12] MEDS: VITAMIN B-6 100 MG PO (22:00)
[2024-03-12 22:13] LABS: Urine Albumin Trace (Neg - Trace); Urine Bilirubin Negative (Negative); Urine Character Clear (Clear); Urine Color Yellow; Urine Glucose Negative (Negative); Urine Ketone Negative (Negative); Urine Leukocyte 2+ (Negative); Urine Nitrite Negative (Negative); Urine Occult Blood Negative (Negative); Urine Specific Gravity 1.025 (<1.030); Urine Urobilinogen Negative (Neg - 1+)
[2024-03-12] MEDS: ELAVIL 75 MG PO (22:14)
[2024-03-12 22:38] LABS: Urine Bacteria Few (Negative); Urine Red Blood Cell 0-2 /HPF (0-2); Urine Squamous Cell >30 /LPF (Few); Urine White Cell 40-50 /HPF (0-5)
[2024-03-13] VITALS (17 sets, daily range): BP systolic 93–184; BP diastolic 46–90; PULSE 72–86; O2SAT 96; BMI 29.7
[2024-03-13] MEDS: SYNTHROID 75 MCG PO (06:25)
[2024-03-13 06:52] LABS: Hematocrit 37.3 % (37.0-47.0); Hemoglobin 12.2 g/dL (12.0-16.0); Mean Corp Hgb Conc. 32.7 g/dL (33.0-37.0); Mean Corpuscular Volume 91.6 fL (81.0-99.0); Mean Platelet Volume 8.7 fL (7.4-10.4); Platelet Count 233 10^3/uL (130-400); Red Blood Cell Count 4.07 10^6/uL (4.20-5.40); Red Cell Dist. Width 13.6 % (11.5-14.5); White Blood Cell Count 8.1 10^3/uL (4.8-10.8)
--- NOTE | 2024-03-13 07:00 | W.PN.HOSP.TC ---
Today's Communication/Plan
-
Symptoms improving
Advance diet as tolerated
Telemetry, EKG
Assessment / Plan
Assessment / Plan
Physical Exam
General: Not in acute distress.
HEENT: Normocephalic and Moist mucous membranes.
Respiratory: Clear to Auscultation Bilaterally
Cardiac: S1/S2 and Regular Rhythm
GI: Soft, Non Distended, Normal Bowel Sounds and Nontender
Musculoskeletal: No Cyanosis and No Edema
Skin: Warm. Dry.
Neuro: AO x 3 and Nonfocal/grossly intact
Psych: Calm
Assessment/Plan
78-year-old female past medical history of hypertension, chronic back pain, hypothyroidism, presenting with vomiting since last night after eating steak and mashed potatoes yesterday. No diarrhea.
Patient also had a fall with lightheadedness possible syncopal episode and hit the right costochondral area on a basket which was hung on her walker.
Labs show MECCA and leukocytosis. CT abdomen pelvis showed no evidence of acute pathology in the abdomen.
Patient likely has food poisoning/gastroenteritis. No diarrhea to check stool cultures. IV fluids for MECCA. Patient was initially tender at the right costal margin area on the rib. Toradol for pain. Hold lisinopril.
# Nausea/vomiting likely gastroenteritis - IMPROVED
# Leukocytosis - RESOLVED
-Symptoms have overall improved, she is tolerating clear liquid diet
-CT abdomen pelvis with no evidence of acute pathology
-Zofran as needed for nausea vomiting
-Advance Diet as Tolerated order placed
-Although urinalysis is positive, no need for antibiotics as no associated urinary symptoms
# Fall/ lightheadedness from volume depletion, concern for syncope prior to arrival
# Right upper ribs pain
# History of Orthostatic Hypotension with associated falls/syncope (no cardiac history, per patient)
# Orthostatic Hypotension
-Check EKG
-Telemetry monitoring
-PT/OT consulted
# Acute kidney injury on CKD stage II likely from dehydration secondary to vomiting
-Creatinine 1.8 initially
-Patient has been getting IV fluids
#Chronic back pain status post spinal stimulator
#Compression Fracture (per patient)
Follows up with pain management at [facility]
Continue to monitor
On amitriptyline
#Essential hypertension
-continue amlodipine
-hold lisinopril
# Hypothyroidism
-Levothyroxine
#Colonic Diverticula on CT Imaging
#Multilevel lumbar degenerative disc disease
DVT Prophylaxis: Heparin subq
CODE STATUS: DNR
Anticipated Discharge: Within 24 hours
Subjective/Interval History
-
Date of Service: March 13, 2024
Patient was seen and examined. She reported no vomiting today, denied any abdominal pain, tolerating clear liquid diet. No bowel movements.
Objective Data
-
Labs:
Laboratory Results
03/13/24
06:32
WBC 8.1
Hgb 12.2
Hct 37.3
Plt Count 233 D
Vital Signs:
Vital Signs
Temp Pulse Resp BP Pulse Ox
98.1 F 53 18 121/56 96
03/12/24 11:07 03/12/24 11:07 03/12/24 11:07 03/13/24 05:00 03/13/24 05:45
[2024-03-13] MEDS: HEPARIN 5000 UNITS SC ×2 (08:17→20:48)
[2024-03-13] MEDS: NORVASC PO (08:23)
[2024-03-13] MEDS: DETROL LA 2 MG PO (08:53)
--- NOTE | 2024-03-13 10:55 | EDRN ---
Pt received info from [facility]- an out pt CT showed some compression fx of the lumbar spine. I asked Mrs Uribe to make sure she notifies the hospitalist when he comes in in case she needs any therapies
[2024-03-13] MEDS: NSS 1000 IV (11:25)
[2024-03-13] MEDS: ULTRAM 25 MG PO ×2 (13:26→21:15)
--- NOTE | 2024-03-13 14:23 | CM ---
Chart reviewed. Patient is here for gastroenteritis. Patient lives alone in halfway apartment. No ALTAGR[place]IA. Elevators are in the building. Independent with a walker. Still drives. Active PCP and pharmacy. No +SDOHs. Retired. Current with .
[facility] visiting nurses. Signed PENG form and copy given to patient. Current with [facility]. Also has a [facility] PCP.
ANTICIPATED DISCHARGE PLAN: Home with vs. without home health care services.
--- NOTE | 2024-03-13 14:34 | PTOTSP ---
pt currently demonstrates ability to complete simple ADLs, functional transfers, ambulation with supervision assistance. no acute OT needs identified at this time, will sign off.
--- NOTE | 2024-03-13 18:00 | PTCARENOTE ---
Pt admitted into room 404-2, ambulated with [id number] to bed. Pt AAOx3, reporting pain 8/10 R rib pain. BP elevated, will recheck. Tele showing NSR. HR 80's. Pt oriented to room and has call parra within reach.
[2024-03-13] MEDS: MAG-TAB SR 84 MG PO (20:48)
[2024-03-13] MEDS: ELAVIL 75 MG PO (21:02)
[2024-03-13] MEDS: VITAMIN B-6 100 MG PO (21:03)
[2024-03-13 22:40] LABS: Blood Urea Nitrogen 39 mg/dl (7-17); Calcium 8.8 mg/dl (8.4-10.2); Carbon Dioxide 22 mmol/L (22-30); Chloride 110 mmol/L (98-107); Glucose 121 mg/dl (70-99); Potassium 4.4 mmol/L (3.5-5.1); Sodium 138 mmol/L (135-145)
[2024-03-13 23:09] LABS: Estimated Creatinine Clearance 37 ml/min
[2024-03-14 03:28] VITALS: BP 168/77
[2024-03-14] MEDS: SYNTHROID 75 MCG PO (05:42)
[2024-03-14] MEDS: NSS 1000 IV (05:46)
[2024-03-14 06:06] VITALS: BP 105/60; BP 145/72; BP 149/67; PULSE 73; PULSE 76; PULSE 83
[2024-03-14 07:35] VITALS: BP 135/70; BP 139/65; BP 151/59; PULSE 74; PULSE 81; PULSE 86
[2024-03-14 08:14] LABS: Hematocrit 36.1 % (37.0-47.0); Hemoglobin 11.4 g/dL (12.0-16.0); Mean Corp Hgb Conc. 31.6 g/dL (33.0-37.0); Mean Corpuscular Volume 91.9 fL (81.0-99.0); Mean Platelet Volume 8.8 fL (7.4-10.4); Platelet Count 234 10^3/uL (130-400); Red Blood Cell Count 3.93 10^6/uL (4.20-5.40); Red Cell Dist. Width 13.4 % (11.5-14.5); White Blood Cell Count 5.9 10^3/uL (4.8-10.8)
[2024-03-14 08:44] LABS: Blood Urea Nitrogen 31 mg/dl (7-17); Calcium 8.7 mg/dl (8.4-10.2); Carbon Dioxide 23 mmol/L (22-30); Chloride 109 mmol/L (98-107); Estimated Creatinine Clearance 37 ml/min; Glucose 124 mg/dl (70-99); Magnesium 2.1 mg/dl (1.6-2.3); Potassium 4.3 mmol/L (3.5-5.1); Sodium 140 mmol/L (135-145)
[2024-03-14] MEDS: HEPARIN 5000 UNITS SC (09:15)
[2024-03-14] MEDS: DETROL LA 2 MG PO (09:17)
[2024-03-14] MEDS: NORVASC 5 MG PO (09:17)
[2024-03-14 10:50] VITALS: BP 166/87; PULSE 85
[2024-03-14 11:23] VITALS: BP 90/66
--- NOTE | 2024-03-14 13:41 | W.PN.HOSP.TC ---
Today's Communication/Plan
-
Discharge today
Assessment / Plan
Assessment / Plan
Physical Exam
General: Not in acute distress.
HEENT: Normocephalic and Moist mucous membranes.
Respiratory: Clear to Auscultation Bilaterally
Cardiac: S1/S2 and Regular Rhythm
GI: Soft, Non Distended, Normal Bowel Sounds and Nontender
Musculoskeletal: No Cyanosis and No Edema
Skin: Warm. Dry.
Neuro: AO x 3 and Nonfocal/grossly intact
Psych: Calm
Assessment/Plan
78-year-old female past medical history of hypertension, chronic back pain, hypothyroidism, presenting with vomiting since last night after eating steak and mashed potatoes yesterday. No diarrhea.
Patient also had a fall with lightheadedness possible syncopal episode and hit the right costochondral area on a basket which was hung on her walker.
Labs showed MECCA and leukocytosis. CT abdomen pelvis showed no evidence of acute pathology in the abdomen.
Patient likely has food poisoning/gastroenteritis.
# Nausea/vomiting likely gastroenteritis - IMPROVED
# Leukocytosis - RESOLVED
-Symptoms have overall improved, she is tolerating clear liquid diet
-CT abdomen pelvis with no evidence of acute pathology
-Zofran as needed for nausea vomiting
-Patient now tolerating Low Residue Diet -- continue on discharge
-Although urinalysis is positive, no need for antibiotics as no associated urinary symptoms
#Asymptomatic E. coli Bacteriuria
# Fall/ lightheadedness from volume depletion, concern for syncope prior to arrival
# Right upper ribs pain
# History of Orthostatic Hypotension with associated falls/syncope (no cardiac history, per patient)
# Orthostatic Hypotension
-Patient told me on both 03/13/24 and 03/14/24 that she has had wide fluctuations in her blood pressure and has had orthostatic syncope for a long while
now; she stated she has an outpatient appointment soon outpatient for work-up for this.
-PT/OT consulted
# Acute kidney injury on CKD stage II likely from dehydration secondary to vomiting
-Creatinine 1.8 initially --> now improved to 1.1
-Patient received IV fluids
#Chronic back pain status post spinal stimulator
#Compression Fracture (per patient)
Follows up with pain management at [facility]
Continue to monitor
On amitriptyline
#Essential hypertension
-continue amlodipine
-hold lisinopril
# Hypothyroidism
-Levothyroxine
#Colonic Diverticula on CT Imaging
#Multilevel lumbar degenerative disc disease
DVT Prophylaxis: Heparin subq
CODE STATUS: DNR
More than 30 minutes spent in discharge including
Final examination of the patient
Summarizing hospital stay
Instructions for continuing care to all relevant caregivers
Preparation of discharge records, prescriptions, and referral forms
Total time spent (in minutes): 39
Anticipated Discharge: Today
Subjective/Interval History
-
Date of Service: March 14, 2024
Patient was seen and examined. She denied any new symptoms or complaints. She denied any dizziness, palpitation, shortness of breath, nausea, vomiting or any other complaints.
Objective Data
-
Labs:
Laboratory Results
03/14/24
07:38
WBC 5.9
Hgb 11.4 L
Hct 36.1 L
Plt Count 234
Sodium 140
Potassium 4.3
Chloride 109 H
Carbon Dioxide 23
BUN 31 H
Creatinine 1.1 H
Glucose 124 H
Calcium 8.7
Vital Signs:
Vital Signs
Temp Pulse Resp BP Pulse Ox
97.9 F 78 16 90/66 99
03/14/24 11:23 03/14/24 11:23 03/14/24 11:23 03/14/24 11:23 03/14/24 11:23
I&O
12/03/14/24 03/15/24
06:59 06:59 06:59
Intake Total 240 / 240 360 / 360
Balance 240 / 240 360 / 360
[2024-03-14 15:03] VITALS: BP 129/54
--- NOTE | 2024-03-14 16:13 | CM ---
Spoke with pt in room.
She said she was ready for dc.
She requested resumption to [facility] .
IMM reviewed signed on chart.
Spoke with Donald Referral in care port.
Dgmaria c Maryjane will drive pt home.
[facility] with [facility] fax [phone]
--- NOTE | 2024-03-14 16:16 | CM ---
Spoke with pt in room.
She said she was ready for dc.
She requested resumption to [facility] .
Spoke with Donald Referral in care port.
Donita Maryjane will drive pt home.
[facility] fax [phone]
== END 2024-03-14 18:14 | disposition home health service (06) ==
LOC: 4 EAST ACU 16:12
PROVIDERS: Nurse Practitioner Family; Registered Nurse; ADMITTING PHYSICIAN Hospitalist; ATTENDING PHYSICIAN Hospitalist; EMERGENCY PHYSICIAN Emergency Medicine; FAMILY PHYSICIAN Family Medicine
DX: R11.2 Nausea with vomiting, unspecified (principal); R42 Dizziness and giddiness; G89.29 Other chronic pain; M54.9 Dorsalgia, unspecified; I12.9 Hypertensive chronic kidney disease with stage 1 through stage 4 chronic kidney disease, or unspecified chronic kidney disease; E03.9 Hypothyroidism, unspecified; D72.829 Elevated white blood cell count, unspecified; N18.2 Chronic kidney disease, stage 2 (mild); E11.22 Type 2 diabetes mellitus with diabetic chronic kidney disease; M51.369 Other intervertebral disc degeneration, lumbar region without mention of lumbar back pain or lower extremity pain; R82.71 Bacteriuria; B96.20 Unspecified Escherichia coli [E. coli] as the cause of diseases classified elsewhere; I49.8 Other specified cardiac arrhythmias; E86.9 Volume depletion, unspecified; K57.30 Diverticulosis of large intestine without perforation or abscess without bleeding; N17.9 Acute kidney failure, unspecified; W01.198A Fall on same level from slipping, tripping and stumbling with subsequent striking against other object, initial encounter; Y93.89 Activity, other specified; Y92.091 Bathroom in other non-institutional residence as the place of occurrence of the external cause; Z60.2 Problems related to living alone; Z90.49 Acquired absence of other specified parts of digestive tract; Z96.653 Presence of artificial knee joint, bilateral; Z96.642 Presence of left artificial hip joint; Z96.611 Presence of right artificial shoulder joint; Z88.6 Allergy status to analgesic agent; Z88.1 Allergy status to other antibiotic agents; Z88.5 Allergy status to narcotic agent; Z88.0 Allergy status to penicillin; Z88.2 Allergy status to sulfonamides; Z79.890 Hormone replacement therapy; Z66 Do not resuscitate
CPT/HCPCS: 74176; 80048; 80053; 81003; 81015; 83690; 83735; 85025; 85027; 87086; 87088; 87186; 93005; 96361; 96374; 97116; 97165; 97530; 99285; G0378